=== PATIENT | female | born 1940 | race Caucasian/White ===

== ENCOUNTER 2018-08-07 10:51 | Outpatient (CLI) | payer MEDICARE ==
[2018-08-07 12:31] LABS: Basophils # (Auto) 0.1 K/mm3 (0.0-0.1); Basophils % (Auto) 0.9 % (0.0-1.8); Eosinophils # (Auto) 0.2 K/mm3 (0.0-0.4); Eosinophils % (Auto) 2.7 % (0.0-4.3); Hematocrit 38.9 % (30.3-42.9); Hemoglobin 13.7 gm/dl (10.1-14.3); Lymphocytes # (Auto) 1.3 K/mm3 (1.2-5.4); Lymphocytes % (Auto) 22.1 % (13.4-35.0); Mean Corpuscular HGB Conc 35 % (30-34); Mean Corpuscular Volume 91 fl (79-97); Monocytes # (Auto) 0.3 K/mm3 (0.0-0.8); Monocytes % (Auto) 4.4 % (0.0-7.3); Platelet Count 203 K/mm3 (140-440); Red Blood Count 4.26 M/mm3 (3.65-5.03); Red Cell Distribution Width 14.5 % (13.2-15.2)
[2018-08-07 12:48] LABS: Alanine Aminotransferase 15 units/L (7-56); Albumin 4.4 g/dL (3.9-5); BUN/Creatinine Ratio 17; Blood Urea Nitrogen 10 mg/dL (7-17); Calcium 9.5 mg/dL (8.4-10.2); Chol/HDL Ratio 3.29 %; HDL Cholesterol 58 mg/dL (40-59); Hemolysis Index 3; LDL Cholesterol,Direct 134 mg/dL (50-130)
== END 2018-08-07 10:52 | disposition home or self-care (01) ==
LOC: LAB 10:51
PROVIDERS: ATTEND Internal Medicine
DX: I10 Essential (primary) hypertension (principal); E78.2 Mixed hyperlipidemia; E66.09 Other obesity due to excess calories; K57.32 Diverticulitis of large intestine without perforation or abscess without bleeding; K21.9 Gastro-esophageal reflux disease without esophagitis; J45.909 Unspecified asthma, uncomplicated; Z90.49 Acquired absence of other specified parts of digestive tract; Z90.710 Acquired absence of both cervix and uterus
CPT/HCPCS: 36415; 80053; 80061; 82306; 82607; 85025

== ENCOUNTER 2019-01-08 10:16 | Outpatient (CLI) | payer MEDICARE ==
[2019-01-08 11:33] LABS: Chol/HDL Ratio 2.43 %
[2019-01-11 12:45] LABS: Vitamin D, 25-OH, D2 <4 ng/mL
== END 2019-01-08 10:17 | disposition home or self-care (01) ==
LOC: LAB 10:16
PROVIDERS: ATTEND Internal Medicine
DX: E78.2 Mixed hyperlipidemia (principal); M89.9 Disorder of bone, unspecified; K21.9 Gastro-esophageal reflux disease without esophagitis; I10 Essential (primary) hypertension; E78.5 Hyperlipidemia, unspecified
CPT/HCPCS: 36415; 80061; 82306

== ENCOUNTER 2019-05-24 09:48 | Outpatient (CLI) | payer MEDICARE ==
[2019-05-24 12:49] LABS: Basophils % (Auto) 0.4 % (0.0-1.8); Eosinophils # (Auto) 0.1 K/mm3 (0.0-0.4); Eosinophils % (Auto) 2.6 % (0.0-4.3); Hematocrit 37.5 % (30.3-42.9); Hemoglobin 13.2 gm/dl (10.1-14.3); Lymphocytes # (Auto) 1.4 K/mm3 (1.2-5.4); Lymphocytes % (Auto) 24.9 % (13.4-35.0); Mean Corpuscular HGB Conc 35 % (30-34); Mean Corpuscular Volume 91 fl (79-97); Monocytes # (Auto) 0.3 K/mm3 (0.0-0.8); Monocytes % (Auto) 4.9 % (0.0-7.3); Platelet Count 198 K/mm3 (140-440); Red Blood Count 4.12 M/mm3 (3.65-5.03); Red Cell Distribution Width 14.7 % (13.2-15.2)
[2019-05-24 13:05] LABS: Creatinine,Urine 48.2 mg/dL (0.1-20.0)
[2019-05-24 13:15] LABS: Alanine Aminotransferase 11 units/L (7-56); Albumin 4.5 g/dL (3.9-5); BUN/Creatinine Ratio 19; Blood Urea Nitrogen 15 mg/dL (7-17); Calcium 9.9 mg/dL (8.4-10.2); Chol/HDL Ratio 2.55 %; HDL Cholesterol 60 mg/dL (40-59); Hemolysis Index 1; LDL Cholesterol,Direct 88 mg/dL (50-130); Microalbumin/Creatinine Ratio 24.8 ug/mg
[2019-05-30 07:18] LABS: Vitamin D, 25-OH, D2 <4 ng/mL
== END 2019-05-24 09:49 | disposition home or self-care (01) ==
LOC: LAB 09:48
PROVIDERS: ATTEND Internal Medicine
DX: E11.65 Type 2 diabetes mellitus with hyperglycemia (principal); E03.9 Hypothyroidism, unspecified; E78.5 Hyperlipidemia, unspecified; Z13.21 Encounter for screening for nutritional disorder
CPT/HCPCS: 36415; 80053; 80061; 82043; 82306; 82607; 83036; 84443; 85025

== ENCOUNTER 2020-11-06 14:22 | Inpatient (IN) | payer MEDICARE ==
[2020-11-06] MEDS ORDERED: hydrALAZINE 20 MG/1 ML INJ IV PRN (16:19)
[2020-11-06] MEDS ORDERED: ONDANSETRON 4 MG ODT TAB PO PRN (16:19)
[2020-11-06] MEDS ORDERED: ACETAMINOPHEN 325 MG TAB PO PRN (16:19)
[2020-11-06] MEDS ORDERED: POLYETHYLENE GLYCOL 3350 17 GM POWDER PO PRN (16:19)
[2020-11-06] MEDS ORDERED: ALBUTEROL 2.5 MG/3 ML NEBU IH PRN (16:19)
[2020-11-06] MEDS: metroNIDAZOLE 500 MG TAB PO SCH (22:10)
[2020-11-06] MEDS: levoFLOXacin 500 MG TAB PO SCH (22:10)
[2020-11-06] MEDS: HEPARIN 5,000 UNIT/1 ML VIAL SUB-Q SCH (22:11)
[2020-11-07 05:25] LABS: Basophils % (Auto) 0.5 % (0.0-1.8); Eosinophils % (Auto) 0.9 % (0.0-4.3); Hemoglobin 9.2 gm/dl (10.1-14.3); Lymphocytes # (Auto) 1.3 K/mm3 (1.2-5.4); Lymphocytes % (Auto) 22.5 % (13.4-35.0); Mean Corpuscular HGB Conc 34 % (30-34); Mean Corpuscular Volume 89 fl (79-97); Monocytes # (Auto) 0.4 K/mm3 (0.0-0.8); Platelet Count 282 K/mm3 (140-440); Red Blood Count 3.04 M/mm3 (3.65-5.03); Red Cell Distribution Width 14.5 % (13.2-15.2)
[2020-11-07 05:48] LABS: Alanine Aminotransferase 13 units/L (7-56); Albumin 3.1 g/dL (3.9-5); BUN/Creatinine Ratio 14; Blood Urea Nitrogen 13 mg/dL (7-17); Hemolysis Index 5
[2020-11-07] MEDS: metroNIDAZOLE 500 MG TAB PO SCH ×3 (06:34→22:08)
[2020-11-07] MEDS ORDERED: PANTOPRAZOLE 40 MG TAB PO SCH (07:30)
--- NOTE | 2020-11-07 08:10 | History and Physical Report ---
History of Present Illness Date: 11/07/20 Date of admission: 11/06/20 21:04 Chief Complaint: Debility History of present illness: 80-year-old female who presented to the outside hospital on 10/19/2020 with complaints of generalized abdominal pain for the past 2 weeks accompanied with fever and chills for the past week. She is [place] speaking only. Patient was worked up and found to have a mass on her liver and was admitted for further treatment. Denied any decreased weight but did have decreased appetite over the same. Along with increased urinary frequency without dysuria. Initial work-up showed elevated WBC at 21.4, patient was afebrile and tachycardic. CT abdomen pelvis showed extensive colonic diverticulosis, hiatal hernia, hepatic mass on the right lobe, mottled hepatic hypodensity in both lobes and further advanced imaging was recommended. Antibiotics were started for sepsis. She developed a fever on 10/22 of 101.6 and infectious disease was consulted. Blood cultures were negative, she was found to have a UTI and also developed pneumonia during her stay, both of which were treated with antibiotics. A biopsy was taken of her liver and a percutaneous abdominal drain was placed by interventional radiology on or around 10/29 (exact date not clear from notes available). Interventional radiology requested a follow-up with CT within 1 week of discharge for possibly removing the drain. We will try to coordinate with them to see if we can perform the imaging here versus sending her out. After the patient was medically stabilized they were transferred for further rehabilitation. All available medical records have been reviewed. Plan of care was discussed with patient. Language line was offered and available with the patient during examination, patient declined and stated we could speak in [place]. I reminded her to please let me know she did not under stand anything and we would utilize the language line to ensure she had full understanding for her care. Patient continues on oral antibiotics. Patient also noted to have acute on chronic kidney disease (CKD 3) per the medical record however she denies this. She does live alone with her who is recently had a stroke and is primary caregiver. On examination her left upper extremity is warm, red and tender to palpation near her previous IV site, concern for either infiltration versus DVT versus thrombophlebitis. Doppler ordered to evaluate further Past History Past Medical History: GERD, hypertension, hyperlipidemia, other (CKD 3) Past Surgical History: cholecystectomy, hysterectomy, total knee replacement (Left), Other (Right ankle surgery) Social history: , lives with family. denies: smoking, alcohol abuse Family history: CAD, cancer Medications and Allergies Allergies Allergy/AdvReac Type Severity Reaction Status Date / Time No Known Allergies Allergy Verified 04/13/14 19:30 Active Meds: Active Medications Acetaminophen (Acetaminophen 325 Mg Tab) 650 mg PO Q6H PRN PRN Reason: Non Cardiac Pain or Temp>100.5 Albuterol (Albuterol 2.5 Mg/3 Ml Nebu) 2.5 mg IH Q4HRT PRN PRN Reason: Shortness Of Breath Amlodipine Besylate (Amlodipine 10 Mg Tab) 10 mg PO QDAY ENOCH Atorvastatin Calcium (Atorvastatin 40 Mg Tab) 40 mg PO QHS [facility] Last Admin: 11/06/20 21:08 Dose: Not Given Documented by: Bisacodyl (Bisacodyl 10 Mg Rect Supp) 10 mg FL QDAY PRN PRN Reason: Constipation Heparin Sodium (Porcine) (Heparin 5,000 Unit/1 Ml Vial) 5,000 unit SUB-Q Q12HR [facility] Last Admin: 11/06/20 22:11 Dose: 5,000 unit Documented by: Hydralazine HCl (Hydralazine 20 Mg/1 Ml Inj) 10 mg IV Q4HR PRN PRN Reason: Hypertension Levofloxacin (Levofloxacin 500 Mg Tab) 500 mg PO Q48H [facility]; Protocol Stop: 11/14/20 20:59 Last Admin: 11/06/20 22:10 Dose: 500 mg Documented by: Losartan Potassium (Losartan 50 Mg Tab) 50 mg PO QDAY [facility] Metronidazole (Metronidazole 500 Mg Tab) 500 mg PO Q8HR [facility]; Protocol Stop: 11/14/20 21:59 Last Admin: 11/07/20 06:34 Dose: 500 mg Documented by: Ondansetron HCl (Ondansetron 4 Mg Odt Tab) 4 mg PO Q8H PRN PRN Reason: Nausea And Vomiting Pantoprazole Sodium (Pantoprazole 40 Mg Tab) 40 mg PO BIDAC [facility] Polyethylene Glycol (Polyethylene Glycol 3350 17 Gm Powder) 17 gm PO QDAY PRN PRN Reason: Constipation Review of Systems All systems: negative (ROS negative for 10 systems except as noted below with pertinent positives and negatives.) Constitutional: poor appetite, no fever, no chills Ears, nose, mouth and throat: no decreased hearing, no voice changes Cardiovascular: no chest pain, no palpitations, no edema Respiratory: no cough with sputum, no shortness of breath Gastrointestinal: abdominal pain, no nausea, no vomiting, no diarrhea, no constipation Musculoskeletal: shooting arm pain, limitation of motion Integumentary: wounds (Percutaneous abdominal drain for liver abscess), no rash, no pruritis Neurological: weakness, no numbness Psychiatric: no memory loss, no insomnia Exam - Exam Narrative exam: MUSCULOSKELETAL SPECIALTY EXAM CONSTITUTIONAL: Well developed, well nourished, appropriately groomed, slightly obese LYMPHATIC: No appreciable abnormalities palpable in neck EENT: Oropharynx clear. Hearing intact to soft voice RESPIRATORY: Clear to auscultation bilaterally, no increased work of breathing CARDIOVASCULAR: Regular Rate/ Rhythm, no swelling, edema or tenderness in BUE or BLE. Pulses palpable in all extremities. All extremities warm. GI: + bowel sounds, soft, NTTP, nondistended. Percutaneous drain in right abdomen with expected drainage INTEGUMENTARY: Left upper extremity warm to touch, red, otherwise normal, no lesion, rash, masses or bruising noted in extremities. MUSCULOSKELETAL: Left upper extremity with decreased range of motion and tenderness to palpation, otherwise BUE and BLE normal without defect, crepitus, subluxation, effusion, arthritic changes or TTP. RUE 4+/5, good ROM, with normal tone. LUE with decreased range of motion and strength due to pain BLE 4/5 good ROM, with normal tone NEURO: CN 2-12 grossly intact. Sensation intact in all extremities. Reflexes 2+ bilaterally at biceps, brachioradialis and patella. No clonus at ankles. Coordination intact in BUE. No tremor noted in 4 extremities. POSTURE and GAIT: Sitting posture good. Balance and gait deferred until seen with therapy. PSYCH: Alert, oriented x3, affect appears normal. Insight appears intact. - Constitutional Vitals: Vital Signs - 12hr 11/06/20 11/06/20 11/06/20 21:25 22:00 23:00 Temperature 98.9 F 98.9 F Pulse Rate 97 H Respiratory 16 18 Rate Respiratory 18 Rate [Abdomen] Blood Pressure 148/75 [Left] O2 Sat by Pulse 92 Oximetry 11/07/20 05:04 Temperature 98.3 F Pulse Rate 100 H Respiratory 16 Rate Respiratory Rate [Abdomen] Blood Pressure 150/79 [Left] O2 Sat by Pulse 95 Oximetry - Labs CBC & Chem 7: 11/07/20 05:00 11/07/20 05:00 Labs: Laboratory Results - last 72 hr 11/07/20 11/07/20 05:00 05:00 WBC 5.9 RBC 3.04 L Hgb 9.2 L Hct 27.0 L MCV 89 MCH 30 MCHC 34 RDW 14.5 Plt Count 282 Lymph % (Auto) 22.5 Tucker % (Auto) 7.0 Eos % (Auto) 0.9 Baso % (Auto) 0.5 Lymph # (Auto) 1.3 Tucker # (Auto) 0.4 Eos # (Auto) 0.0 Baso # (Auto) 0.0 Seg Neutrophils % 69.1 Seg Neutrophils # 4.0 Sodium 139 Potassium 3.9 Chloride 98.9 Carbon Dioxide 29 Anion Gap 15 BUN 13 Creatinine 0.9 Estimated GFR > 60 BUN/Creatinine Ratio 14 Glucose 99 Calcium 9.0 Total Bilirubin 0.30 AST 16 ALT 13 Alkaline Phosphatase 91 Total Protein 7.2 Albumin 3.1 L Albumin/Globulin Ratio 0.8 Assessment and Plan Assessment and plan: Patient was assessed and evaluated for Acute Inpatient Rehab Unit. Due to the patients above-mentioned medical complexity, along with decreased functional mobility and self care, this patient continues to require and be appropriate for a comprehensive, multidisciplinary [id number] rehabilitation program. These needs cannot be met in an outpatient or other less intensive setting. The patient would continue to benefit from skilled therapy intervention for at least 3 hours per day, five days a week, with techniques specific to the needs of the patient to improve function, activities of daily living, and reintegration into the community. The patient continues to require: -- OT to improve ROM, self-care, and learn use of adaptive equipment -- PT to improve strength and balance, functional transfers, and ambulation with energy conservation techniques to improve functional mobility -- 24 hour RN to ensure and prevent skin breakdown, promote progressive independence while ensuring safety, ensure education regarding medications, and incorporation of the rehabilitation at the bedside -- 24 hour Freight Coordinator to coordinate this interdisciplinary program, and to manage/prevent complications as a result of the patients medical comorbidities. -Plan of care by day 4 -Weekly team conferences With such a program, there is a reasonable certainty that the goals individualized for this patient can be achieved within the specified length of stay. Debility secondary to hospitalization with sepsis and liver abscess: Continue to monitor patient for resolution of infection. Antibiotics are continuing for approximately 1 week. Infectious disease available if needed. Percutaneous abdominal drain remains in place with expected drainage, patient will need to follow-up with abdominal CT and possibly have removal of drain in 1 week. We will contact outside hospital and see if our facility can perform the CT versus sending her back to the outside hospital. Continue to monitor for any worsening signs or symptoms of infection or significant changes in drainage from liver. Patient also had UTI and suspected pneumonia in outside hospital, will need to monitor for return of either of these issues. Pain, swelling and redness of left upper extremity: Located at prior IV site which patient states was left in for a prolonged period of time. Concern for possible infiltration versus thrombophlebitis versus DVT. Have ordered Doppler to evaluate further and will start appropriate therapy after words. Currently providing ice for therapeutic relief. Hypertension: Goal less than 140/90. Avoid hypotension. Continue medications and monitor blood pressure on a regular basis and adjust medications as needed for normotension. On exam patient is slightly elevated with blood pressure this morning. Will monitor over the next day or 2 and adjust as needed. She is currently on maximal dose of amlodipine, but we do have room to increase losartan. Anemia: Normocytic normochromic currently. We will continue to monitor and transfuse for hemoglobin less than 7. Work-up to determine if patient needs replacement of nutrients. Moderate protein malnutrition: Start supplements, dietitian consult. Monitor oral intake and just supplements as needed. CKD?: Patient had acute on chronic kidney disease at outside hospital. Patient states that she does not have any diagnosis that she knows of of CKD. We will continue to monitor renal function and adjust medications as needed if we see further issues. Currently patient's renal function appears to be normal. GERD: Continue Protonix. ADL dysfunction: OT will work on improving ability to perform ADLs (including assistive devices) to increase independence and decrease caregiver burden and improve functional transfers and mobility training. Difficulty walking: PT will work on gait training and proper use of assistive devices and advance as appropriate to use of stairs and outside ambulation on uneven surfaces. Unsteadiness on feet: PT will work on improving static and dynamic sitting and standing balance as well as proper use of assistive devices to decrease risk of falls. Abnormality of gait: PT will work to improve safety and efficiency of gait through neuromotor training and gait training along with instruction on proper use of assistive devices. Muscle weakness: PT & OT will work on strengthening exercises to improve functional strength including mixture of closed and open kinetic chain exercises. Debility: PT & OT will work on improving overall functional status to improve participation with ADLs, mobility and social involvement. Fatigue: PT & OT will work on improving endurance through aerobic exercises and therapeutic activity while monitoring patients tolerance for activity and vital signs as needed. DVT ppx: Heparin twice daily Pain: Continue physical modalities in therapy and pain medications as needed to achieve functional pain control. Sleep: Monitor and address as needed. Bowel: Monitor and address as needed. Appetite: Monitor and address as needed. Discharge planning: Pending therapy progress and care plan meeting. Will continue discussion with therapy team, SW, patient and family. Restrictions/ Precautions: Falls, percutaneous abdominal drain WB status: FWB Functional Hx: ADLs: Independent Cognition: Independent Mobility: No AD Barriers to Discharge: Decreased mobility and ability to perform self care, balance deficits, weakness Estimated Length of Stay: 1014 days Discharge Destination: Home with family POST ADMISSION PHYSICIAN EVALUATION I have examined the patient and find that functional status, medical condition and appropriateness for IRF admission are essentially unchanged from those described in the preadmission screening. Will monitor for worsening sepsis, hepatic abscess, increased drainage from abscess site, DVT/PE (suspected DVT in left upper extremity being evaluated currently), bowel and bladder complications and complications due to hypertension, GERD, and electrolyte abnormalities. Will attempt to avoid occurrence of these issues or treat them if they present themselves.
[2020-11-07] MEDS: amLODIPine 10 MG TAB PO SCH (09:42)
[2020-11-07] MEDS: LOSARTAN 50 MG TAB PO SCH (09:43)
[2020-11-07] MEDS: HEPARIN 5,000 UNIT/1 ML VIAL SUB-Q SCH ×2 (10:10→22:09)
--- NOTE | 2020-11-07 12:40 | Vascular Lab Report ---
DUPLEX DOPPLER UPPER EXTREMITY VENOUS, LEFT INDICATION / CLINICAL INFORMATION: LUE TTP, warm, suspect DVT vs thrombophlebitis. TECHNIQUE: Duplex doppler imaging was performed through the veins of the left upper extremity using venous compr ession and other maneuvers. COMPARISON: None available. FINDINGS: LEFT INTERNAL JUGULAR VEIN: Negative. LEFT SUBCLAVIAN VEIN: Negative. LEFT AXILLARY VEIN: Negative. LEFT BRACHIAL VEIN: Negative. LEFT FOREARM VEINS: Negative. LEFT BASILIC VEIN (SUPERFICIAL): Negative. ADDITIONAL FINDINGS: Mild superficial soft tissue swelling and edema of the left upper extremity IMPRESSION: 1. No sonographic evidence for DVT or superficial thrombophlebitis. Signer Name: Gurvinder Jose MD Signed: 11/07/2020 12:36 PM Workstation Name: [id number]
[2020-11-08] MEDS: amLODIPine 10 MG TAB PO SCH (09:10)
[2020-11-08] MEDS: PANTOPRAZOLE 40 MG TAB PO SCH (09:10)
[2020-11-08] MEDS: LOSARTAN 50 MG TAB PO SCH (09:10)
[2020-11-08] MEDS: HEPARIN 5,000 UNIT/1 ML VIAL SUB-Q SCH ×2 (09:17→21:23)
[2020-11-08] MEDS: metroNIDAZOLE 500 MG TAB PO SCH ×2 (17:07→21:24)
[2020-11-08] MEDS: levoFLOXacin 500 MG TAB PO SCH (21:23)
[2020-11-08] MEDS: traMADol 50 MG TAB PO PRN (22:57)
[2020-11-09] MEDS: metroNIDAZOLE 500 MG TAB PO SCH ×4 (05:28→21:21)
[2020-11-09 07:11] LABS: Hematocrit 26.6 % (30.3-42.9); Hemoglobin 9.1 gm/dl (10.1-14.3); Mean Corpuscular HGB Conc 34 % (30-34); Mean Corpuscular Volume 90 fl (79-97); Platelet Count 257 K/mm3 (140-440); Red Blood Count 2.96 M/mm3 (3.65-5.03); Red Cell Distribution Width 15.3 % (13.2-15.2)
[2020-11-09 07:36] LABS: BUN/Creatinine Ratio 16; Blood Urea Nitrogen 14 mg/dL (7-17); Calcium 9.2 mg/dL (8.4-10.2); Hemolysis Index 0; Iron 56 ug/dL (37-170); Prealbumin 0.168 g/L (0.200-0.400); Total Iron Binding Capacity 150 mcg/dL (250-450)
[2020-11-09] MEDS: PANTOPRAZOLE 40 MG TAB PO SCH (07:48)
[2020-11-09] MEDS: LOSARTAN 50 MG TAB PO SCH (07:48)
[2020-11-09] MEDS: amLODIPine 10 MG TAB PO SCH (07:48)
--- NOTE | 2020-11-09 09:45 | Progress Note ---
Subjective Date of service: 11/09/20 Principal diagnosis: Debility Interval history: 80-year-old female who presented to the outside hospital on 10/19/2020 with complaints of generalized abdominal pain for the past 2 weeks accompanied with fever and chills for the past week. She is [place] speaking only. Patient was worked up and found to have a mass on her liver and was admitted for further treatment. Denied any decreased weight but did have decreased appetite over the same. Along with increased urinary frequency without dysuria. Initial work-up showed elevated WBC at 21.4, patient was afebrile and tachycardic. CT abdomen pelvis showed extensive colonic diverticulosis, hiatal hernia, hepatic mass on the right lobe, mottled hepatic hypodensity in both lobes and further advanced imaging was recommended. Antibiotics were started for sepsis. She developed a fever on 10/22 of 101.6 and infectious disease was consulted. Blood cultures were negative, she was found to have a UTI and also developed pneumonia during her stay, both of which were treated with antibiotics. A biopsy was taken of her liver and a percutaneous abdominal drain was placed by interventional radiology on 10/29 . Interventional radiology requested a follow-up with CT within 1 week of discharge for possibly removing the drain. We will try to coordinate with them to see if we can perform the imaging here versus sending her out. After the patient was medically stabilized they were transferred for further rehabilitation. All available medical records have been reviewed. Plan of care was discussed with patient. Language line was offered and available with the patient during examination, patient declined and stated we could speak in [place]ali. I reminded her to please let me know she did not under stand anything and we would utilize the language line to ensure she had full understanding for her care. Patient continues on oral antibiotics. Patient also noted to have acute on chronic kidney disease (CKD 3) per the medical record however she denies this. She does live alone with her who is recently had a stroke and is primary caregiver. On examination her left upper extremity is warm, red and tender to palpation near her previous IV site, concern for either infiltration versus DVT versus thrombophlebitis. Doppler ordered to evaluate further Interval History: Patient is participating in therapy and making reasonable progress. Taking rest breaks as needed. +BM. Denies palpitations, dyspnea, cough, N/V, or joint pain. Debility: Continue therapy and monitor patient for improvement in ability to move around, maintain independence and decrease caregiver burden. Hepatic abscess: Drain in place with small amount of output. Patient is supposed to follow-up with interventional radiology within a week in order to have repeat CT as well as possibly for removal. Discussed drain removal and repeat CT with both our in-house radiologist as well as radiologist at outside hospital. All are in agreement that we can perform the repeat imaging here and remove the drain if abscess is reduced enough and there is no longer a fluid collection requiring drainage. From reviewing the available notes it appears that the drain might be ready to be removed on Monday. We will work to get this scheduled Left upper extremity pain and swelling: Imaging and report reviewed. No signs of DVT thankfully in the left upper extremity. Swelling has decreased somewhat today, continue utilizing modalities and pain medications as needed. Movement slightly better today Hypertension: Values have been stable and within normal limits so far. Continue to monitor blood pressure on a regular basis and adjust for normotension. Goal less than 140/90. Avoid hypotension. Anemia: Consistent with anemia of chronic disease. Folate in normal range but on the lower side. Moderate protein malnutrition: Albumin was low on admission, prealbumin also low at 0.168. Patient on supplements. CKD: Patient's renal function has been stable and within normal limits since admission. Estimated GFR greater than 60 GERD: Continue medications adjust as needed, monitor for symptoms. Insomnia: Start trazodone and monitor All records, vitals, labs and medications were reviewed. No other issues per patient, nursing or therapy. Objective - Exam Narrative Exam: MUSCULOSKELETAL SPECIALTY EXAM CONSTITUTIONAL: Well developed, well nourished, appropriately groomed, slightly obese EENT: Hearing intact to soft voice RESPIRATORY: Clear to auscultation bilaterally, no increased work of breathing CARDIOVASCULAR: Regular Rate/ Rhythm, no swelling, edema or tenderness in BUE or BLE. All extremities warm. GI: + bowel sounds, soft, NTTP, nondistended. Percutaneous drain in right abdomen with expected drainage INTEGUMENTARY: Left upper extremity warm to touch, red, otherwise normal, no lesion, rash, masses or bruising noted in extremities. MUSCULOSKELETAL: Left upper extremity with decreased range of motion and tenderness to palpation, otherwise BUE and BLE normal without defect, crepitus, subluxation, effusion, arthritic changes or TTP. RUE 4+/5, good ROM, with normal tone. LUE with decreased range of motion and strength due to pain BLE 4/5 good ROM, with normal tone NEURO: CN 2-12 grossly intact. Sensation intact in all extremities. No tremor noted in 4 extremities. POSTURE and GAIT: Sitting posture good. Balance and gait deferred until seen with therapy. PSYCH: Alert, oriented x3, affect appears normal. Insight appears intact. - Constitutional Vitals: Vital Signs - 12hr 11/08/20 11/08/20 11/08/20 22:00 22:57 23:00 Temperature Pulse Rate Respiratory 17 17 Rate Respiratory 17 Rate [Left Hand ] Blood Pressure O2 Sat by Pulse Oximetry 11/08/20 11/09/20 11/09/20 23:57 07:39 07:48 Temperature 98.9 F Pulse Rate 93 H 88 Respiratory 17 16 Rate Respiratory Rate [Left Hand ] Blood Pressure 118/61 130/62 O2 Sat by Pulse 93 Oximetry - Allied health notes Allied health notes reviewed: nursing, PT, OT FIMS assessment as documented by PT/OT/ST: Grooming Patient cleans teeth/dentures: Yes Patient omer/brushes hair: Yes Patient washes, rinses and Yes dries face: Patient washes, rinses and Yes dries hands: Patient applies make-up: No Patient performs (no make-up/ / (100%) shaving): Grooming FIM Score 5. Supervision ([place] applies toothpaste or opens containers.) Toileting Toileting Device Commode over Toilet Toileting FIM Score 2. Maximal Assistance (Patient = 25% or more) Social interaction/Memory/Problem solving Social Interaction FIM Score 6. Mod. [place] (Mostly appropriate. May need meds. No supv.) Memory FIM Score 5. Supervision (Needs cueing <10%, stressful/ unfamiliar situations.) Transfers Mode of Locomotion: Wheelchair Bed/Chair/Wheelchair Transfers 4. Minimal Assistance (Patient = 75% or more. FIM Score Needs touching.) Patient transferred to: Shower Shower Transfers FIM Score 4. Minimal Assistance (Patient = 75% or more. Needs touching.) Locomotion- walk/wheelchair Ambulation Distance 126 Eating Eating FIM Score 5. Supervision/Set-Up (Needs help w/ containers, cutting meat, etc.) Dressing-Upper body Patient retrieves clothing Yes items: Patient applies/removes UE No: n/a prosthesis or orthosis: Upper Body Dressing FIM Score 2. Maximal Assistance (Patient = 25% or more) Dressing-lower body Patient retrieves clothing Yes items: Patient applies/removes LE No: n/a prosthesis or orthosis: Lower Body Dressing FIM Score 2. Maximal Assistance (Patient = 25% or more) - Labs CBC & Chem 7: 11/09/20 06:21 11/09/20 06:21 Labs: Laboratory Results - last 72 hr 11/07/20 11/07/20 11/09/20 05:00 05:00 06:21 WBC 5.9 5.4 RBC 3.04 L 2.96 L Hgb 9.2 L 9.1 L Hct 27.0 L 26.6 L MCV 89 90 MCH 30 31 MCHC 34 34 RDW 14.5 15.3 H Plt Count 282 257 Lymph % (Auto) 22.5 [place] % (Auto) 7.0 Eos % (Auto) 0.9 Baso % (Auto) 0.5 Lymph # (Auto) 1.3 [place] # (Auto) 0.4 Eos # (Auto) 0.0 Baso # (Auto) 0.0 Seg Neutrophils % 69.1 Seg Neutrophils # 4.0 Sodium 139 Potassium 3.9 Chloride 98.9 Carbon Dioxide 29 Anion Gap 15 BUN 13 Creatinine 0.9 Estimated GFR > 60 BUN/Creatinine Ratio 14 Glucose 99 Calcium 9.0 Iron TIBC Ferritin Total Bilirubin 0.30 AST 16 ALT 13 Alkaline Phosphatase 91 Total Protein 7.2 Albumin 3.1 L Albumin/Globulin Ratio 0.8 Prealbumin Folate 11/09/20 11/09/20 11/09/20 06:21 06:21 06:21 WBC RBC Hgb Hct MCV MCH MCHC RDW Plt Count Lymph % (Auto) [place] % (Auto) Eos % (Auto) Baso % (Auto) Lymph # (Auto) [place] # (Auto) Eos # (Auto) Baso # (Auto) Seg Neutrophils % Seg Neutrophils # Sodium 139 Potassium 3.9 Chloride 99.6 Carbon Dioxide 28 Anion Gap 15 BUN 14 Creatinine 0.9 Estimated GFR > 60 BUN/Creatinine Ratio 16 Glucose 87 Calcium 9.2 Iron 56 TIBC 150 L Ferritin 1207.0 H Total Bilirubin AST ALT Alkaline Phosphatase Total Protein Albumin Albumin/Globulin Ratio Prealbumin 0.168 L Folate 10.52 Assessment and Plan Debility secondary to hospitalization with sepsis and liver abscess: Continue to monitor patient for resolution of infection. Antibiotics are continuing for approximately 1 week. Infectious disease available if needed. Percutaneous abdominal drain remains in place with expected drainage, patient will need to follow-up with abdominal CT and possibly have removal of drain in 1 week. We will contact outside hospital and see if our facility can perform the CT versus sending her back to the outside hospital. Continue to monitor for any worsening signs or symptoms of infection or significant changes in drainage from liver. Patient also had UTI and suspected pneumonia in outside hospital, will need to monitor for return of either of these issues. Pain, swelling and redness of left upper extremity: Located at prior IV site w [facility] patient states was left in for a prolonged period of time. Concern for possible infiltration versus thrombophlebitis versus DVT. Doppler negative for thrombophlebitis or DVT. Currently providing ice for therapeutic relief along with pain medications. Hypertension: Goal less than 140/90. Avoid hypotension. Continue medications and monitor blood pressure on a regular basis and adjust medications as needed for normotension. On exam patient is slightly elevated with blood pressure this morning. Will monitor over the next day or 2 and adjust as needed. She is currently on maximal dose of amlodipine, but we do have room to increase losartan. Anemia: Normocytic normochromic currently. We will continue to monitor and transfuse for hemoglobin less than 7. Work-up to determine if patient needs replacement of nutrients. Moderate protein malnutrition: Start supplements, dietitian consult. Monitor oral intake and just supplements as needed. CKD?: Patient had acute on chronic kidney disease at outside hospital. Patient states that she does not have any diagnosis that she knows of of CKD. We will continue to monitor renal function and adjust medications as needed if we see further issues. Currently patient's renal function appears to be normal. GERD: Continue Protonix. Insomnia: Start trazodone monitor for improvement. ADL dysfunction: OT will work on improving ability to perform ADLs (including assistive devices) to increase independence and decrease caregiver burden and improve functional transfers and mobility training. Difficulty walking: PT will work on gait training and proper use of assistive devices and advance as appropriate to use of stairs and outside ambulation on uneven surfaces. Unsteadiness on feet: PT will work on improving static and dynamic sitting and standing balance as well as proper use of assistive devices to decrease risk of falls. Abnormality of gait: PT will work to improve safety and efficiency of gait through neuromotor training and gait training along with instruction on proper use of assistive devices. Muscle weakness: PT & OT will work on strengthening exercises to improve functional strength including mixture of closed and open kinetic chain exercises. Debility: PT & OT will work on improving overall functional status to improve participation with ADLs, mobility and social involvement. Fatigue: PT & OT will work on improving endurance through aerobic exercises and therapeutic activity while monitoring patients tolerance for activity and vital signs as needed. DVT ppx: Heparin twice daily Pain: Continue physical modalities in therapy and pain medications as needed to achieve functional pain control. Sleep: Monitor and address as needed. Bowel: Monitor and address as needed. Appetite: Monitor and address as needed. Discharge planning: Pending therapy progress and care plan meeting. Will reymundo peralta discussion with therapy team, SW, patient and family. Restrictions/ Precautions: Falls, percutaneous abdominal drain WB status: FWB Functional Hx: ADLs: Independent Cognition: Independent Mobility: No AD Barriers to Discharge: Decreased mobility and ability to perform self care, balance deficits, weakness Estimated Length of Stay: 1014 days Discharge Destination: Home with family
[2020-11-09] MEDS: HEPARIN 5,000 UNIT/1 ML VIAL SUB-Q SCH ×2 (11:51→21:21)
--- NOTE | 2020-11-09 16:31 | IRU Plan of Care ---
Interdisciplinary Plan of Care - IP IRU INTERDISCIPLINARY PLAN: [facility] Inpatient Rehab Unit Plan of Care IRU Interdisciplinary Care Plan Start: 11/06/20 21:25 Freq: Admission then PRN Status: Active Protocol: Document 11/09/20 15:28 TH (Rec: 11/09/20 15:41 TH [id number]) Interdisciplinary Problem List Interdisciplinary Problem List Interdisciplinary Problem List Impaired Bathing/Grooming, Query Text:Answers will Trigger Problems Impaired Dressing,Impaired and Outcomes on Worklist. Mobility,Impaired Transfers, Impaired Bladder/Bowel Management,Impaired Toileting, Pain Management,Knowledge Deficits,Impaired Home Management,Impaired Safety, Impaired Cardiovascular System IRU Interdisciplinary Care Plan Therapy Services Therapy Services Will Include: Physical Therapy,Occupational Query Text:Patient will be seen for a Therapy minimum of 3 hours of daily therapy 5 out of 7 days a week. Therapy intensity may be adjusted within a 7 consecutive day period to effectively serve the individual needs of the patient. Treatment Frequency/Intensity/Duration Treatment Frequency 5days/wk Treatment Intensity 3 hours/day Treatment Duration 7-10 days Problem Area: Eating/Swallowing Eating/Swallowing Outcomes Eating/Swallowing Interventions Problem Area: Bathing/Grooming Bathing/Grooming Outcomes Improve [place] w/ Grooming,Improve [place] w/ Bathing Bathing/Grooming Interventions ADL Training,Use of Assistive Devices,Therapeutic Exercise, Therapeutic Activity, Neuromuscular Re-Education, Balance Work,Activity Tolerance Work,Patient/ Caregiver Education Problem Area: Dressing Dressing Outcomes Improve [place] w/ UB Dressing,Improve [place] w/ LB Dressing Dressing Interventions ADL Training,Use of Assistive Devices,Neuromuscular Re- Education,Therapeutic Exercise ,Balance Work,Modalities, Patient/Caregiver Education Problem Area: Mobility Mobility Outcomes Improve [place] w/ Ambulation,Improve [place] w/ Stairs/Curb, Improve [place] w/ Wheelchair Mobility Interventions Therapeutic Exercise,Activity Tolerance Work,Use of Assistive Devices,Patient/ Caregiver Education,Gait Training,W/C Mobility Work Problem Area: Transfers Transfers Outcomes Improve [place] w/ Bed Transfers,Improve [place] w/ Toilet Transfers,Improve [place] w/ Car Transfers Transfers Interventions Transfer Training,Therapeutic Exercise,Activity Tolerance Work,Use of Assistive Devices, Patient/Caregiver Education Problem Area: Bowel/Bladder Managment Bowel/Bladder Outcomes Continent of Bladder,Continent of Bowel Bowel/Bladder Interventions Patient/Caregiver Education Problem Area: Toileting Toileting Outcomes Improve [place] w/ Toileting Toileting Interventions ADL Training,Balance Work,Use of Assistive Devices,Patient/ Caregiver Education Problem Area: Nutrition Nutrition Outcomes Nutrition Interventions Problem Area: Comprehension Comprehension Outcomes Comprehension Interventions Problem Area: Expression Expression Outcomes Expression Interventions Problem Area: Problem Solving Problem Solving Outcomes Problem Solving Interventions Problem Area: Memory Memory Outcomes Memory Interventions Problem Area: Pain Management Pain Management Outcomes Pain Management Interventions Problem Area: Knowledge Deficits Knowledge Deficits Outcomes Knowledge Deficits Interventions Problem Area: Skin/Tissue Integrity Skin/Tissue Integrity Outcomes Skin/Tissue Integrity Interventions Problem Area: Social Interaction Social Interaction Outcomes Social Interaction Interventions Problem Area: Adjustment to Disability Adjustment to Disability Outcomes Adjustment to Disability Interventions Problem Area: Discharge Concerns Discharge Concerns Outcomes Discharge w/ Necessary Equipment,Have Home Health/ Outpatient Services Discharge Concerns Interventions Discharge Planning,Equipment Assessment, Acquisition and Placement,Family/Caregiver Training Problem Area: Community Reintegration Community Reintegration Outcomes Community Reintegration Interventions Problem Area: Home Management Home Management Outcomes Improve [place] w/ Home Management Home Management Interventions Meal Preparation,Clothing Care ,Activity Tolerance Work, Patient/Caregiver Education Problem Area: Safety Safety Outcomes Demonstrate Good Safety w/ Transfers/Mobility Safety Interventions Identify Fall Risk,[place] Pt. to Environment,Reduce Environmental Hazards Problem Area: Medication Education Medication Education Outcomes Medication Education Interventions Problem Area: Diabetes Education Diabetes Education Outcomes Diabetes Education Interventions Problem Area: Oxygenation Oxygenation Outcomes Oxygenation Interventions Problem Area: Cardiovascular Cardiovascular Outcomes Maintain or Improve Cardiovascular Status Cardiovascular Interventions Assess Vital Signs at least Every 4 hours Physician Only Medical Prognosis and Rehabilitation Potential (Completed by Physician) Good medical prognosis, good rehab potential This plan of care has been developed based on the findings from the pre- admission assessment, post admission physician evaluation, information gathered from the assessments from all therapy disciplines and other pertinent clinicians. The plan of care has been reviewed and discussed in collaboration with the interdisciplinary team. The plan of care will be reviewed and updated at least weekly.
[2020-11-09] MEDS: traMADol 50 MG TAB PO PRN (21:22)
[2020-11-10] MEDS: metroNIDAZOLE 500 MG TAB PO SCH ×3 (05:47→22:02)
--- NOTE | 2020-11-10 07:55 | Progress Note ---
Subjective Date of service: 11/10/20 Principal diagnosis: Debility Interval history: 80-year-old female who presented to the outside hospital on 10/19/2020 with complaints of generalized abdominal pain for the past 2 weeks accompanied with fever and chills for the past week. She is Sami speaking only. Patient was worked up and found to have a mass on her liver and was admitted for further treatment. Denied any decreased weight but did have decreased appetite over the same. Along with increased urinary frequency without dysuria. Initial work-up showed elevated WBC at 21.4, patient was afebrile and tachycardic. CT abdomen pelvis showed extensive colonic diverticulosis, hiatal hernia, hepatic mass on the right lobe, mottled hepatic hypodensity in both lobes and further advanced imaging was recommended. Antibiotics were started for sepsis. She developed a fever on 10/22 of 101.6 and infectious disease was consulted. Blood cultures were negative, she was found to have a UTI and also developed pneumonia during her stay, both of which were treated with antibiotics. A biopsy was taken of her liver and a percutaneous abdominal drain was placed by interventional radiology on 10/29 . Interventional radiology requested a follow-up with CT within 1 week of discharge for possibly removing the drain. We will try to coordinate with them to see if we can perform the imaging here versus sending her out. After the patient was medically stabilized they were transferred for further rehabilitation. All available medical records have been reviewed. Plan of care was discussed with patient. Language line was offered and available with the patient during examination, patient declined and stated we could speak in Swedish. I reminded her to please let me know she did not under stand anything and we would utilize the language line to ensure she had full understanding for her care. Patient continues on oral antibiotics. Patient also noted to have acute on chronic kidney disease (CKD 3) per the medical record however she denies this. She does live alone with her who is recently had a stroke and is primary caregiver. On examination her left upper extremity is warm, red and tender to palpation near her previous IV site, concern for either infiltration versus DVT versus thrombophlebitis. Doppler ordered to evaluate further Interval History: Patient is participating in therapy and making reasonable progress. Taking rest breaks as needed. +BM. Denies palpitations, dyspnea, cough, N/V, or joint pain. Continues to have left upper extremity pain and swelling but this has decreased. Debility: Continue therapy and monitor patient for improvement in ability to move around, maintain independence and decrease caregiver burden. Hepatic abscess: Drain in place with small amount of output. Patient is supposed to follow-up with interventional radiology within a week in order to have repeat CT as well as possibly for removal. Discussed drain removal and repeat CT with both our in-house radiologist as well as radiologist at outside hospital. All are in agreement that we can perform the repeat imaging here and remove the drain if abscess is reduced enough and there is no longer a fluid collection requiring drainage. Schedule CT abdomen with possible removal of drain on Monday. Left upper extremity pain and swelling: Imaging and report reviewed. No signs of DVT thankfully in the left upper extremity. Swelling has decreased somewhat today, continue utilizing modalities and pain medications as needed. Movement slightly better today. Will start a couple of days of NSAIDs to see if this improves pain and swelling. Hypertension: Values have been stable and within normal limits so far. Continue to monitor blood pressure on a regular basis and adjust for normotension. Goal less than 140/90. Avoid hypotension. Anemia: Consistent with anemia of chronic disease. Folate in normal range but on the lower side. Moderate protein malnutrition: Albumin was low on admission, prealbumin also low at 0.168. Patient on supplements. CKD: Patient's renal function has been stable and within normal limits since admission. Estimated GFR greater than 60 GERD: Continue medications adjust as needed, monitor for symptoms. Insomnia: Start trazodone and monitor All records, vitals, labs and medications were reviewed. No other issues per patient, nursing or therapy. Patient discussed during team conference. Making decent gains with therapy and is pretty good with safety awareness. Does have continued soreness in the left upper extremity including the hand and wrist. Doppler was negative for DVT or thrombophlebitis. Will start some NSAIDs to see if that improves. Nursing notes skin breakdown in the gluteal cleft that appears to be a chronic issue. We will continue working with the patient to achieve functional improvement and possibly discharge her later next week pending further progress. Objective - Exam Narrative Exam: MUSCULOSKELETAL SPECIALTY EXAM CONSTITUTIONAL: Well developed, well nourished, appropriately groomed, slightly obese EENT: Hearing intact to soft voice RESPIRATORY: Clear to auscultation bilaterally, no increased work of breathing CARDIOVASCULAR: Regular Rate/ Rhythm, no swelling, edema or tenderness in BUE or BLE. All extremities warm. GI: + bowel sounds, soft, NTTP, nondistended. Percutaneous drain in right abdomen with expected drainage INTEGUMENTARY: Left upper extremity warm to touch, otherwise normal, no lesion, rash, masses or bruising noted in extremities. MUSCULOSKELETAL: Left upper extremity with decreased range of motion and tenderness to palpation, otherwise BUE and BLE normal without defect, crepitus, subluxation, effusion, arthritic changes or TTP. RUE 4+/5, good ROM, with normal tone. LUE with decreased range of motion and strength due to pain BLE 4/5 good ROM, with normal tone NEURO: CN 2-12 grossly intact. Sensation intact in all extremities. No tremor noted in 4 extremities. POSTURE and GAIT: Sitting posture good. Balance and gait deferred until seen with therapy. PSYCH: Alert, oriented x3, affect appears normal. Insight appears intact. - Constitutional Vitals: Vital Signs - 12hr 11/09/20 11/09/20 11/09/20 21:22 22:00 22:22 Temperature Pulse Rate Respiratory 17 17 Rate Respiratory 17 Rate [Abdomen] Respiratory 17 Rate [Right Cheek] Blood Pressure [Left] O2 Sat by Pulse Oximetry 11/10/20 05:24 Temperature 98.5 F Pulse Rate 86 Respiratory 16 Rate Respiratory Rate [Abdomen] Respiratory Rate [Right Cheek] Blood Pressure 117/61 [Left] O2 Sat by Pulse 92 Oximetry - Allied health notes Allied health notes reviewed: nursing, PT, OT FIMS assessment as documented by PT/OT/ST: Grooming Patient cleans teeth/dentures: Yes Patient omer/brushes hair: Yes Patient washes, rinses and Yes dries face: Patient washes, rinses and Yes dries hands: Patient applies make-up: No Patient performs (no make-up/ 09/06 (100%) shaving): Grooming FIM Score 5. Supervision ([place] applies toothpaste or opens containers.) Toileting Toileting Device Urinal Toileting FIM Score 2. Maximal Assistance (Patient = 25% or more) Social interaction/Memory/Problem solving Social Interaction FIM Score 5. Supervision (Needs supv. <10%. Needs encouragement to participate.) Memory FIM Score 5. Supervision (Needs cueing <10%, stressful/ unfamiliar situations.) Transfers Mode of Locomotion: Wheelchair Bed/Chair/Wheelchair Transfers 4. Minimal Assistance (Patient = 75% or more. FIM Score Needs touching.) Patient transferred to: Shower Shower Transfers FIM Score 4. Minimal Assistance (Patient = 75% or more. Needs touching.) Locomotion- walk/wheelchair Ambulation Distance 126 Eating Eating FIM Score 5. Supervision/Set-Up (Needs help w/ containers, cutting meat, etc.) Dressing-Upper body Patient retrieves clothing No items: Patient applies/removes UE No: n/a prosthesis or orthosis: Upper Body Dressing FIM Score 4. Minimal Assistance (Patient = 75% or more. Needs touching.) Dressing-lower body Patient retrieves clothing No items: Patient applies/removes LE No: n/a prosthesis or orthosis: Lower Body Dressing FIM Score 4. Minimal Assistance (Patient = 75% or more. Needs touching.) - Labs CBC & Chem 7: 11/09/20 06:21 11/09/20 06:21 Labs: Laboratory Results - last 72 hr 11/09/20 11/09/20 11/09/20 06:21 06:21 06:21 WBC 5.4 RBC 2.96 L Hgb 9.1 L Hct 26.6 L MCV 90 MCH 31 MCHC 34 RDW 15.3 H Plt Count 257 Sodium 139 Potassium 3.9 Chloride 99.6 Carbon Dioxide 28 Anion Gap 15 BUN 14 Creatinine 0.9 Estimated GFR > 60 BUN/Creatinine Ratio 16 Glucose 87 Calcium 9.2 Iron 56 TIBC 150 L Ferritin 1207.0 H Prealbumin 0.168 L Vitamin B12 Folate 11/09/20 11/09/20 06:21 06:21 WBC RBC Hgb Hct MCV MCH MCHC RDW Plt Count Sodium Potassium Chloride Carbon Dioxide Anion Gap BUN Creatinine Estimated GFR BUN/Creatinine Ratio Glucose Calcium Iron TIBC Ferritin Prealbumin Vitamin B12 2000 H Folate 10.52 Assessment and Plan Debility secondary to hospitalization with sepsis and liver abscess: Continue to monitor patient for resolution of infection. Antibiotics are continuing for approximately 1 week. Infectious disease available if needed. Percutaneous abdominal drain remains in place with expected drainage, patient will need to follow-up with abdominal CT and possibly have removal of drain in 1 week. We will contact outside hospital and see if our facility can perform the CT versus sending her back to the outside hospital. Continue to monitor for any worsening signs or symptoms of infection or significant changes in drainage from liver. Patient also had UTI and suspected pneumonia in outside hospital, will need to monitor for return of either of these issues. Pain, swelling and redness of left upper extremity: Located at prior IV site which patient states was left in for a prolonged period of time. Concern for possible infiltration versus thrombophlebitis versus DVT. Doppler negative for thrombophlebitis or DVT. Currently providing ice for therapeutic relief along with pain medications. Hypertension: Goal less than 140/90. Avoid hypotension. Continue medications and monitor blood pressure on a regular basis and adjust medications as needed for normotension. On exam patient is slightly elevated with blood pressure this morning. Will monitor over the next day or 2 and adjust as needed. She is currently on maximal dose of amlodipine, but we do have room to increase losartan. Anemia: Normocytic normochromic currently. We will continue to monitor and transfuse for hemoglobin less than 7. Work-up to determine if patient needs replacement of nutrients. Moderate protein malnutrition: Start supplements, dietitian consult. Monitor oral intake and just supplements as needed. CKD?: Patient had acute on chronic kidney disease at outside hospital. Patient states that she does not have any diagnosis that she knows of of CKD. We will continue to monitor renal function and adjust medications as needed if we see further issues. Currently patient's renal function appears to be normal. GERD: Continue Protonix. Insomnia: Start trazodone monitor for improvement. ADL dysfunction: OT will work on improving ability to perform ADLs (including assistive devices) to increase independence and decrease caregiver burden and improve functional transfers and mobility training. Difficulty walking: PT will work on gait training and proper use of assistive devices and advance as appropriate to use of stairs and outside ambulation on uneven surfaces. Unsteadiness on feet: PT will work on improving static and dynamic sitting and standing balance as well as proper use of assistive devices to decrease risk of falls. Abnormality of gait: PT will work to improve safety and efficiency of gait through neuromotor training and gait training along with instruction on proper use of assistive devices. Muscle weakness: PT & OT will work on strengthening exercises to improve fu nctional strength including mixture of closed and open kinetic chain exercises. Debility: PT & OT will work on improving overall functional status to improve participation with ADLs, mobility and social involvement. Fatigue: PT & OT will work on improving endurance through aerobic exercises and therapeutic activity while monitoring patients tolerance for activity and vital signs as needed. DVT ppx: Heparin twice daily Pain: Continue physical modalities in therapy and pain medications as needed to achieve functional pain control. Sleep: Monitor and address as needed. Bowel: Monitor and address as needed. Appetite: Monitor and address as needed. Discharge planning: Pending therapy progress and care plan meeting. Will continue discussion with therapy team, SW, patient and family. We will look to discharge sometime next week and equipment at discharge will depend on progress between now and then. Restrictions/ Precautions: Falls, percutaneous abdominal drain WB status: FWB Functional Hx: ADLs: Independent Cognition: Independent Mobility: No AD Barriers to Discharge: Decreased mobility and ability to perform self care, balance deficits, weakness Estimated Length of Stay: 1014 days Discharge Destination: Home with family
[2020-11-10] MEDS: LOSARTAN 50 MG TAB PO SCH (09:41)
[2020-11-10] MEDS: PANTOPRAZOLE 40 MG TAB PO SCH (09:42)
[2020-11-10] MEDS: amLODIPine 10 MG TAB PO SCH (09:42)
[2020-11-10] MEDS: HEPARIN 5,000 UNIT/1 ML VIAL SUB-Q SCH ×2 (09:45→22:01)
[2020-11-10] MEDS: NAPROXEN 375 MG TAB PO SCH ×2 (12:29→22:02)
[2020-11-10] MEDS: levoFLOXacin 500 MG TAB PO SCH (22:02)
[2020-11-11] MEDS: metroNIDAZOLE 500 MG TAB PO SCH ×3 (05:32→21:37)
--- NOTE | 2020-11-11 07:49 | Cat Scan Report ---
CT ABDOMEN AND PELVIS WITHOUT CONTRAST INDICATION / CLINICAL INFORMATION: Hepatic Abscess. TECHNIQUE: Axial CT images were obtained through the abdomen and pelvis without IV contrast. Sagittal and hernandez l reformatted images. All CT scans at this location are performed using CT dose reduction for ALARA b y means of automated exposure control. COMPARISON: No relevant comparison at this facility. FINDINGS: LOWER CHEST: Lung bases are clear. Normal heart size. Small hiatal hernia. LIVER: Percutaneous drain terminates in the lower anterior right hepatic lobe near the gallbladder fo ssa. There is no residual fluid collection surrounding the catheter or within the liver consistent wi th hepatic abscess. Complete drainage is suspected. Otherwise the liver parenchyma is unremarkable. GALLBLADDER: Surgically removed. BILE DUCTS: No significant abnormality. PANCREAS: No significant abnormality. SPLEEN: No significant abnormality. ADRENALS: No significant abnormality. RIGHT KIDNEY and URETER: No significant abnormality. LEFT KIDNEY and URETER: No significant abnormality. STOMACH and SMALL BOWEL: No significant abnormality. COLON: There is severe diffuse diverticulosis of the colon. Moderate fecal retention. No acute inflam mation or large colon mass is detected. APPENDIX: Not identified, correlate with history. PERITONEUM: No free fluid. No free air. No fluid collection. LYMPH NODES: No significant adenopathy. AORTA and ARTERIES: No significant abnormality. IVC and VEINS: No significant abnormality. URINARY BLADDER: No significant abnormality. REPRODUCTIVE ORGANS: No significant abnormality. ADDITIONAL FINDINGS: None. SKELETAL SYSTEM: Mild thoracolumbar spondylosis. No acute osseous findings or bone lesion. IMPRESSION: Complete resolution of the hepatic abscess is suspected as described. No acute process in the abdomen or pelvis. Diffuse diverticulosis of the colon. Small hiatal hernia. Signer Name: Bryan Khan Jr, MD Signed: 11/11/2020 7:45 AM Workstation Name: [id number]
[2020-11-11] MEDS: PANTOPRAZOLE 40 MG TAB PO SCH (10:16)
[2020-11-11] MEDS: amLODIPine 10 MG TAB PO SCH (10:16)
[2020-11-11] MEDS: LOSARTAN 50 MG TAB PO SCH (10:16)
[2020-11-11] MEDS: HEPARIN 5,000 UNIT/1 ML VIAL SUB-Q SCH ×2 (10:17→21:36)
[2020-11-11] MEDS: NAPROXEN 375 MG TAB PO SCH ×2 (10:27→21:36)
--- NOTE | 2020-11-11 14:31 | Progress Note ---
Subjective Date of service: 11/11/20 Principal diagnosis: Debility Interval history: 80-year-old female who presented to the outside hospital on 10/19/2020 with complaints of generalized abdominal pain for the past 2 weeks accompanied with fever and chills for the past week. She is Korean speaking only. Patient was worked up and found to have a mass on her liver and was admitted for further treatment. Denied any decreased weight but did have decreased appetite over the same. Along with increased urinary frequency without dysuria. Initial work-up showed elevated WBC at 21.4, patient was afebrile and tachycardic. CT abdomen pelvis showed extensive colonic diverticulosis, hiatal hernia, hepatic mass on the right lobe, mottled hepatic hypodensity in both lobes and further advanced imaging was recommended. Antibiotics were started for sepsis. She developed a fever on 10/22 of 101.6 and infectious disease was consulted. Blood cultures were negative, she was found to have a UTI and also developed pneumonia during her stay, both of which were treated with antibiotics. A biopsy was taken of her liver and a percutaneous abdominal drain was placed by interventional radiology on 10/29 . Interventional radiology requested a follow-up with CT within 1 week of discharge for possibly removing the drain. We will try to coordinate with them to see if we can perform the imaging here versus sending her out. After the patient was medically stabilized they were transferred for further rehabilitation. All available medical records have been reviewed. Plan of care was discussed with patient. Language line was offered and available with the patient during examination, patient declined and stated we could speak in [place]. I reminded her to please let me know she did not under stand anything and we would utilize the language line to ensure she had full understanding for her care. Patient continues on oral antibiotics. Patient also noted to have acute on chronic kidney disease (CKD 3) per the medical record however she denies this. She does live alone with her who is recently had a stroke and is primary caregiver. On examination her left upper extremity is warm, red and tender to palpation near her previous IV site, concern for either infiltration versus DVT versus thrombophlebitis. Doppler ordered to evaluate further Interval History: Patient is participating in therapy and making reasonable progress. Taking rest breaks as needed. +BM. Denies palpitations, dyspnea, cough, N/V, or joint pain. Continues to have left upper extremity pain and swelling but this has decreased. Debility: Continue therapy and monitor patient for improvement in ability to move around, maintain independence and decrease caregiver burden. Hepatic abscess: CT abdomen pelvis was performed today. Imaging and report personally reviewed, no signs of remaining fluid collection at this time. I did discuss the results with the radiologist as the drain was not removed and he stated that we could remove the drain. Left upper extremity pain and swelling: Imaging and report reviewed. No signs of DVT thankfully in the left upper extremity. Swelling has decreased somewhat today, continue utilizing modalities and pain medications as needed. Movement slightly better today. Will start a couple of days of NSAIDs to see if this improves pain and swelling. Improving as expected Hypertension: Values have been stable and within normal limits so far. Continue to monitor blood pressure on a regular basis and adjust for normotension. Goal less than 140/90. Avoid hypotension. Anemia: Consistent with anemia of chronic disease. Folate in normal range but o n the lower side. Moderate protein malnutrition: Albumin was low on admission, prealbumin also low at 0.168. Patient on supplements. CKD: Patient's renal function has been stable and within normal limits since admission. Estimated GFR greater than 60 GERD: Continue medications adjust as needed, monitor for symptoms. Insomnia: Start trazodone and monitor All records, vitals, labs and medications were reviewed. No other issues per patient, nursing or therapy. Pigtail drain removal After reviewing imaging of the of the abdomen and conferring with the radiologist, patient was prepped for removal of the drain. ALEXIS was disconnected from the catheter, tape was removed from the skin. Skin was cleansed with alcohol and patted dry. Sutures were clipped and removed from the skin. Retaining suture for the pigtail catheter was cut and pigtail catheter was removed fully intact without incident. Slight drainage from abdominal site was cleansed, skin surrounding the area was cleansed and a Steri-Strip was placed over the drain site and covered with gauze and tape. Patient had no compl ications with drain removal. Approximately 40 minutes was spent on patient care today including counseling coordinating care with radiology as stated above and time spent removing abdominal drain. Objective - Exam Narrative Exam: MUSCULOSKELETAL SPECIALTY EXAM CONSTITUTIONAL: Well developed, well nourished, appropriately groomed, slightly obese EENT: Hearing intact to soft voice RESPIRATORY: Clear to auscultation bilaterally, no increased work of breathing CARDIOVASCULAR: Regular Rate/ Rhythm, no swelling, edema or tenderness in BUE or BLE. All extremities warm. GI: + bowel sounds, soft, NTTP, nondistended. Percutaneous drain removed and drain site bandaged. INTEGUMENTARY: Left upper extremity warm to touch, otherwise normal, no lesion, rash, masses or bruising noted in extremities. MUSCULOSKELETAL: Left upper extremity with decreased range of motion and tenderness to palpation, otherwise BUE and BLE normal without defect, crepitus, subluxation, effusion, arthritic changes or TTP. RUE 4+/5, good ROM, with normal tone. LUE with decreased range of motion and strength due to pain BLE 4/5 good ROM, with normal tone NEURO: CN 2-12 grossly intact. Sensation intact in all extremities. No tremor noted in 4 extremities. POSTURE and GAIT: Sitting posture good. PSYCH: Alert, oriented x3, affect appears normal. Insight appears intact. - Constitutional Vitals: Vital Signs - 12hr 11/11/20 11/11/20 11/11/20 05:40 07:51 12:05 Temperature 98.2 F 98.6 F 98.9 F Pulse Rate 90 87 104 H Respiratory 18 18 18 Rate Blood Pressure 137/66 130/57 124/72 O2 Sat by Pulse 94 96 94 Oximetry - Allied health notes Allied health notes reviewed: nursing, PT, OT FIMS assessment as documented by PT/OT/ST: Grooming Patient cleans teeth/dentures: Yes Patient omer/brushes hair: Yes Patient washes, rinses and Yes dries face: Patient washes, rinses and Yes dries hands: Patient applies make-up: No Patient performs (no make-up/ /4 (100%) shaving): Grooming FIM Score 5. Supervision ([place] applies toothpaste or opens containers.) Toileting Toileting Device Urinal Toileting FIM Score 2. Maximal Assistance (Patient = 25% or more) Social interaction/Memory/Problem solving Social Interaction FIM Score 6. Mod. [place] (Mostly appropriate. May need meds. No supv.) Memory FIM Score 6. Modified [place](Mild difficulty remembering people/routines.) Transfers Mode of Locomotion: Wheelchair Bed/Chair/Wheelchair Transfers 4. Minimal Assistance (Patient = 75% or more. FIM Score Needs touching.) Patient transferred to: Shower Shower Transfers FIM Score 4. Minimal Assistance (Patient = 75% or more. Needs touching.) Locomotion- walk/wheelchair Ambulation Distance 126 Eating Eating FIM Score 6. Modified [place] (Special consistency or uses device.) Dressing-Upper body Patient retrieves clothing No items: Patient applies/removes UE No: n/a prosthesis or orthosis: Upper Body Dressing FIM Score 4. Minimal Assistance (Patient = 75% or more. Needs touching.) Dressing-lower body Patient retrieves clothing No items: Patient applies/removes LE No: n/a prosthesis or orthosis: Lower Body Dressing FIM Score 4. Minimal Assistance (Patient = 75% or more. Needs touching.) - Labs CBC & Chem 7: 11/09/20 06:21 11/09/20 06:21 Labs: Laboratory Results - last 72 hr 11/09/20 11/09/20 11/09/20 06:21 06:21 06:21 WBC 5.4 RBC 2.96 L Hgb 9.1 L Hct 26.6 L MCV 90 MCH 31 MCHC 34 RDW 15.3 H Plt Count 257 Sodium 139 Potassium 3.9 Chloride 99.6 Carbon Dioxide 28 Anion Gap 15 BUN 14 Creatinine 0.9 Estimated GFR > 60 BUN/Creatinine Ratio 16 Glucose 87 Calcium 9.2 Iron 56 TIBC 150 L Ferritin 1207.0 H Prealbumin 0.168 L Vitamin B12 Folate 11/09/20 11/09/20 06:21 06:21 WBC RBC Hgb Hct MCV MCH MCHC RDW Plt Count Sodium Potassium Chloride Carbon Dioxide Anion Gap BUN Creatinine Estimated GFR BUN/Creatinine Ratio Glucose Calcium Iron TIBC Ferritin Prealbumin Vitamin B12 2000 H Folate 10.52 Assessment and Plan Debility secondary to hospitalization with sepsis and liver abscess: Continue to monitor patient for resolution of infection. Antibiotics are continuing for approximately 1 week. Infectious disease available if needed. Percutaneous abdominal drain removed today after CT abdomen pelvis showed complete resolution of hepatic abscess. Conferred with radiologist to confirm that they were okay with drain removal. Pain, swelling and redness of left upper extremity: Located at prior IV site which patient states was left in for a prolonged period of time. Concern for possible infiltration versus thrombophlebitis versus DVT. Doppler negative for thrombophlebitis or DVT. Currently providing ice for therapeutic relief along with pain medications/NSAIDs. Improving Hypertension: Goal less than 140/90. Avoid hypotension. Continue medications and monitor blood pressure on a regular basis and adjust medications as needed for normotension. On exam patient is slightly elevated with blood pressure this morning. Will monitor over the next day or 2 and adjust as needed. She is currently on maximal dose of amlodipine, but we do have room to increase losartan. Anemia: Normocytic normochromic currently. We will continue to monitor and transfuse for hemoglobin less than 7. Moderate protein malnutrition: Start supplements, dietitian consult. Monitor oral intake and just supplements as needed. CKD?: Patient had acute on chronic kidney disease at outside hospital. Patient states that she does not have any diagnosis that she knows of of CKD. We will continue to monitor renal function and adjust medications as needed if we see further issues. Currently patient's renal function appears to be normal. GERD: Continue Protonix. Insomnia: Start trazodone monitor for improvement. ADL dysfunction: OT will work on improving ability to perform ADLs (including assistive devices) to increase independence and decrease caregiver burden and improve functional transfers and mobility training. Difficulty walking: PT will work on gait training and proper use of assistive devices and advance as appropriate to use of stairs and outside ambulation on uneven surfaces. Unsteadiness on feet: PT will work on improving static and dynamic sitting and standing balance as well as proper use of assistive devices to decrease risk of falls. Abnormality of gait: PT will work to improve safety and efficiency of gait through neuromotor training and gait training along with instruction on proper use of assistive devices. Muscle weakness: PT & OT will work on strengthening exercises to improve functional strength including mixture of closed and open kinetic chain exercises. Debility: PT & OT will work on improving overall functional status to improve participation with ADLs, mobility and social involvement. Fatigue: PT & OT will work on improving endurance through aerobic exercises and therapeutic activity while monitoring patients tolerance for activity and vital signs as needed. DVT ppx: Heparin twice daily Pain: Continue physical modalities in therapy and pain medications as needed to achieve functional pain control. Sleep: Monitor and address as needed. Bowel: Monitor and address as needed. Appetite: Monitor and address as needed. Discharge planning: Pending therapy progress and care plan meeting. Will continue discussion with therapy team, SW, patient and family. We will look to discharge next Monday. Patient give us the name of son that she wants to come in for training. Restrictions/ Precautions: Falls, percutaneous abdominal drain WB status: FWB Functional Hx: ADLs: Independent Cognition: Independent Mobility: No AD Barriers to Discharge: Decreased mobility and ability to perform self care, balance deficits, weakness Estimated Length of Stay: 1014 days Discharge Destination: Home with family
[2020-11-11] MEDS: traZODone 50 MG TAB PO PRN (21:37)
[2020-11-12] MEDS: metroNIDAZOLE 500 MG TAB PO SCH ×3 (06:13→22:43)
[2020-11-12] MEDS: HEPARIN 5,000 UNIT/1 ML VIAL SUB-Q SCH ×3 (08:26→22:37)
[2020-11-12] MEDS: LOSARTAN 50 MG TAB PO SCH (08:26)
[2020-11-12] MEDS: amLODIPine 10 MG TAB PO SCH (08:26)
[2020-11-12] MEDS: NAPROXEN 375 MG TAB PO SCH ×2 (08:26→22:38)
[2020-11-12] MEDS: PANTOPRAZOLE 40 MG TAB PO SCH (08:27)
--- NOTE | 2020-11-12 12:32 | Progress Note ---
Subjective Date of service: 11/12/20 Principal diagnosis: Debility Interval history: 80-year-old female who presented to the outside hospital on 10/19/2020 with complaints of generalized abdominal pain for the past 2 weeks accompanied with fever and chills for the past week. She is Icelandic speaking only. Patient was worked up and found to have a mass on her liver and was admitted for further treatment. Denied any decreased weight but did have decreased appetite over the same. Along with increased urinary frequency without dysuria. Initial work-up showed elevated WBC at 21.4, patient was afebrile and tachycardic. CT abdomen pelvis showed extensive colonic diverticulosis, hiatal hernia, hepatic mass on the right lobe, mottled hepatic hypodensity in both lobes and further advanced imaging was recommended. Antibiotics were started for sepsis. She developed a fever on 10/22 of 101.6 and infectious disease was consulted. Blood cultures were negative, she was found to have a UTI and also developed pneumonia during her stay, both of which were treated with antibiotics. A biopsy was taken of her liver and a percutaneous abdominal drain was placed by interventional radiology on 10/29 . Interventional radiology requested a follow-up with CT within 1 week of discharge for possibly removing the drain. We will try to coordinate with them to see if we can perform the imaging here versus sending her out. After the patient was medically stabilized they were transferred for further rehabilitation. All available medical records have been reviewed. Plan of care was discussed with patient. Language line was offered and available with the patient during examination, patient declined and stated we could speak in Occitan. I reminded her to please let me know she did not under stand anything and we would utilize the language line to ensure she had full understanding for her care. Patient continues on oral antibiotics. Patient also noted to have acute on chronic kidney disease (CKD 3) per the medical record however she denies this. She does live alone with her who is recently had a stroke and is primary caregiver. On examination her left upper extremity is warm, red and tender to palpation near her previous IV site, concern for either infiltration versus DVT versus thrombophlebitis. Doppler ordered to evaluate further Interval History: Patient is participating in therapy and making reasonable progress. Taking rest breaks as needed. +BM. Denies palpitations, dyspnea, cough, N/V, or joint pain. Continues to have left upper extremity pain and swelling but this has decreased. Debility: Continue therapy and monitor patient for improvement in ability to move around, maintain independence and decrease caregiver burden. Hepatic abscess: Continue take antibiotics until completed. Drain was removed on 11/[address] which showed no further fluid collection to be drained. Abdominal wound for catheter drain was secured with Steri-Strips and showed no signs of drainage today on taking down the bandage. Left upper extremity pain and swelling: Imaging and report reviewed. No signs of DVT in the left upper extremity. Swelling continues to decrease, continue utilizing modalities and pain medications as needed. Movement better today. Improving with NSAIDs. Hypertension: Values have been stable and within normal limits so far. Continue to monitor blood pressure on a regular basis and adjust for normotension. Goal less than 140/90. Avoid hypotension. Anemia: Consistent with anemia of chronic disease. Folate in normal range but on the lower side. Moderate protein malnutrition: Albumin was low on admission, prealbumin also low at 0.168. Patient on supplements. CKD: Patient's renal function has been stable and within normal limits since admission. Estimated GFR greater than 60 GERD: Continue medications adjust as needed, monitor for symptoms. Insomnia: Start trazodone and monitor, patient sleeping better. All records, vitals, labs and medications were reviewed. No other issues per patient, nursing or therapy. Objective - Exam Narrative Exam: MUSCULOSKELETAL SPECIALTY EXAM CONSTITUTIONAL: Well developed, well nourished, appropriately groomed, slightly obese EENT: Hearing intact to soft voice RESPIRATORY: Clear to auscultation bilaterally, no increased work of breathing CARDIOVASCULAR: Regular Rate/ Rhythm, no swelling, edema or tenderness in BUE or BLE. All extremities warm. GI: + bowel sounds, soft, NTTP, nondistended. Drain site with scant drainage overnight, bandage reapplied. INTEGUMENTARY: Left upper extremity warm to touch, otherwise normal, no lesion, rash, masses or bruising noted in extremities. MUSCULOSKELETAL: Left upper extremity with decreased range of motion and tenderness to palpation, otherwise BUE and BLE normal without defect, crepitus, subluxation, effusion, arthritic changes or TTP. RUE 4+/5, good ROM, with normal tone. LUE with decreased range of motion and strength due to pain BLE 4/5 good ROM, with normal tone NEURO: CN 2-12 grossly intact. Sensation intact in all extremities. No tremor noted in 4 extremities. POSTURE and GAIT: Sitting posture good. PSYCH: Alert, oriented x3, affect appears normal. Insight appears intact. - Constitutional Vitals: Vital Signs - 12hr 11/12/20 11/12/20 04:44 07:38 Temperature 98 F 98.1 F Pulse Rate 82 85 Respiratory 16 18 Rate Blood Pressure 126/71 Blood Pressure 107/56 [Left] O2 Sat by Pulse 94 94 Oximetry - Allied health notes Allied health notes reviewed: nursing, PT, OT FIMS assessment as documented by PT/OT/ST: Grooming Patient cleans teeth/dentures: Yes Patient omer/brushes hair: Yes Patient washes, rinses and Yes dries face: Patient washes, rinses and Yes dries hands: Patient applies make-up: No Patient performs (no make-up/ / (100%) shaving): Grooming FIM Score 5. Supervision ([place] applies toothpaste or opens containers.) Toileting Toileting Device Urinal Toileting FIM Score 2. Maximal Assistance (Patient = 25% or more) Social interaction/Memory/Problem solving Social Interaction FIM Score 6. Mod. [place] (Mostly appropriate. May need meds. No supv.) Memory FIM Score 6. Modified [place](Mild difficulty remembering people/routines.) Transfers Mode of Locomotion: Wheelchair Bed/Chair/Wheelchair Transfers 4. Minimal Assistance (Patient = 75% or more. FIM Score Needs touching.) Patient transferred to: Shower Shower Transfers FIM Score 4. Minimal Assistance (Patient = 75% or more. Needs touching.) Locomotion- walk/wheelchair Ambulation Distance 126 Eating Eating FIM Score 6. Modified [place] (Special consistency or uses device.) Dressing-Upper body Patient retrieves clothing No items: Patient applies/removes UE No: n/a prosthesis or orthosis: Upper Body Dressing FIM Score 4. Minimal Assistance (Patient = 75% or more. Needs touching.) Dressing-lower body Patient retrieves clothing No items: Patient applies/removes LE No: n/a prosthesis or orthosis: Lower Body Dressing FIM Score 4. Minimal Assistance (Patient = 75% or more. Needs touching.) - Labs CBC & Chem 7: 11/09/20 06:21 11/09/20 06:21 Assessment and Plan Debility secondary to hospitalization with sepsis and liver abscess: Continue to monitor patient for resolution of infection. Antibiotics continued until completed course. Infectious disease available if needed. Percutaneous abdominal drain removed 11/11. Pain, swelling and redness of left upper extremity: Located at prior IV site which patient states was left in for a prolonged period of time. Concern for possible infiltration versus thrombophlebitis versus DVT. Doppler negative for thrombophlebitis or DVT. Currently providing ice for therapeutic relief along with pain medications/NSAIDs. Improving Hypertension: Goal less than 140/90. Avoid hypotension. Continue medications and monitor blood pressure on a regular basis and adjust medications as needed for normotension. On exam patient is slightly elevated with blood pressure this morning. Will monitor over the next day or 2 and adjust as needed. She is currently on maximal dose of amlodipine, but we do have room to increase losartan. Anemia: Normocytic normochromic currently. We will continue to monitor and transfuse for hemoglobin less than 7. Moderate protein malnutrition: Start supplements, dietitian consult. Monitor oral intake and just supplements as needed. CKD?: Patient had acute on chronic kidney disease at outside hospital. Patient states that she does not have any diagnosis that she knows of of CKD. We will continue to monitor renal function and adjust medications as needed if we see further issues. Currently patient's renal function appears to be normal. GERD: Continue Protonix. Insomnia: Start trazodone monitor for improvement. ADL dysfunction: OT will work on improving ability to perform ADLs (including assistive devices) to increase independence and decrease caregiver burden and improve functional transfers and mobility training. Difficulty walking: PT will work on gait training and proper use of assistive devices and advance as appropriate to use of stairs and outside ambulation on uneven surfaces. Unsteadiness on feet: PT will work on improving static and dynamic sitting and standing balance as well as proper use of assistive devices to decrease risk of falls. Abnormality of gait: PT will work to improve safety and efficiency of gait through neuromotor training and gait training along with instruction on proper use of assistive devices. Muscle weakness: PT & OT will work on strengthening exercises to improve functional strength including mixture of closed and open kinetic chain exercis es. Debility: PT & OT will work on improving overall functional status to improve participation with ADLs, mobility and social involvement. Fatigue: PT & OT will work on improving endurance through aerobic exercises and therapeutic activity while monitoring patients tolerance for activity and vital signs as needed. DVT ppx: Heparin twice daily Pain: Continue physical modalities in therapy and pain medications as needed to achieve functional pain control. Sleep: Monitor and address as needed. Bowel: Monitor and address as needed. Appetite: Monitor and address as needed. Discharge planning: Pending therapy progress and care plan meeting. Will continue discussion with therapy team, SW, patient and family. We will look to discharge next Monday. Patient give us the name of son that she wants to come in for training. Will hopefully have the patient at level using cane by the time of discharge. Restrictions/ Precautions: Falls, percutaneous abdominal drain WB status: FWB Functional Hx: ADLs: Independent Cognition: Independent Mobility: No AD Barriers to Discharge: Decreased mobility and ability to perform self care, balance deficits, weakness Estimated Length of Stay: 1014 days Discharge Destination: Home with family
[2020-11-12] MEDS: levoFLOXacin 500 MG TAB PO SCH (20:40)
[2020-11-12] MEDS: traZODone 50 MG TAB PO PRN (22:38)
[2020-11-13] MEDS: metroNIDAZOLE 500 MG TAB PO SCH ×3 (05:51→22:00)
[2020-11-13 06:55] LABS: Hematocrit 28.9 % (30.3-42.9); Hemoglobin 9.7 gm/dl (10.1-14.3); Mean Corpuscular HGB Conc 34 % (30-34); Mean Corpuscular Volume 90 fl (79-97); Platelet Count 257 K/mm3 (140-440); Red Blood Count 3.21 M/mm3 (3.65-5.03); Red Cell Distribution Width 15.9 % (13.2-15.2)
[2020-11-13] MEDS: amLODIPine 10 MG TAB PO SCH (07:55)
[2020-11-13] MEDS: LOSARTAN 50 MG TAB PO SCH (07:55)
[2020-11-13] MEDS: PANTOPRAZOLE 40 MG TAB PO SCH (07:55)
[2020-11-13] MEDS: NAPROXEN 375 MG TAB PO SCH (07:56)
--- NOTE | 2020-11-13 08:31 | Progress Note ---
Subjective Date of service: 11/13/20 Principal diagnosis: Debility Interval history: 80-year-old female who presented to the outside hospital on 10/19/2020 with complaints of generalized abdominal pain for the past 2 weeks accompanied with fever and chills for the past week. She is Mongolian speaking only. Patient was worked up and found to have a mass on her liver and was admitted for further treatment. Denied any decreased weight but did have decreased appetite over the same. Along with increased urinary frequency without dysuria. Initial work-up showed elevated WBC at 21.4, patient was afebrile and tachycardic. CT abdomen pelvis showed extensive colonic diverticulosis, hiatal hernia, hepatic mass on the right lobe, mottled hepatic hypodensity in both lobes and further advanced imaging was recommended. Antibiotics were started for sepsis. She developed a fever on 10/22 of 101.6 and infectious disease was consulted. Blood cultures were negative, she was found to have a UTI and also developed pneumonia during her stay, both of which were treated with antibiotics. A biopsy was taken of her liver and a percutaneous abdominal drain was placed by interventional radiology on 10/29 . Interventional radiology requested a follow-up with CT within 1 week of discharge for possibly removing the drain. We will try to coordinate with them to see if we can perform the imaging here versus sending her out. After the patient was medically stabilized they were transferred for further rehabilitation. All available medical records have been reviewed. Plan of care was discussed with patient. Language line was offered and available with the patient during examination, patient declined and stated we could speak in Polish. I reminded her to please let me know she did not under stand anything and we would utilize the language line to ensure she had full understanding for her care. Patient continues on oral antibiotics. Patient also noted to have acute on chronic kidney disease (CKD 3) per the medical record however she denies this. She does live alone with her who is recently had a stroke and is primary caregiver. On examination her left upper extremity is warm, red and tender to palpation near her previous IV site, concern for either infiltration versus DVT versus thrombophlebitis. Doppler ordered to evaluate further Interval History: Patient is participating in therapy and making reasonable progress. Taking rest breaks as needed. +BM. Denies palpitations, dyspnea, cough, N/V, or joint pain. Left lower extremity pain improved with NSAIDs, modalities in therapy. Debility: Continue therapy and monitor patient for improvement in ability to move around, maintain independence and decrease caregiver burden. Hepatic abscess: Continue take antibiotics until completed. Drain was removed on 11/[address] which showed no further fluid collection to be drained. Abdominal wound for catheter drain was secured with Steri-Strips. Left upper extremity pain and swelling: Imaging and report reviewed. No signs of DVT in the left upper extremity. Swelling continues to decrease, continue utilizing modalities and pain medications as needed. Improving Hypertension: Values have been stable and within normal limits so far. Continue to monitor blood pressure on a regular basis and adjust for normotension. Goal less than 140/90. Avoid hypotension. Anemia: Consistent with anemia of chronic disease. Folate in normal range but o n the lower side. Moderate protein malnutrition: Albumin was low on admission, prealbumin also low at 0.168. Patient on supplements. CKD: Patient's renal function has been stable and within normal limits since admission. Estimated GFR greater than 60 GERD: Continue medications adjust as needed, monitor for symptoms. Insomnia: Start trazodone and monitor, patient sleeping better. All records, vitals, labs and medications were reviewed. No other issues per patient, nursing or therapy. Objective - Exam Narrative Exam: MUSCULOSKELETAL SPECIALTY EXAM CONSTITUTIONAL: Well developed, well nourished, appropriately groomed, slightly obese EENT: Hearing intact to soft voice RESPIRATORY: Clear to auscultation bilaterally, no increased work of breathing CARDIOVASCULAR: Regular Rate/ Rhythm, no swelling, edema or tenderness in BUE or BLE. All extremities warm. GI: + bowel sounds, soft, NTTP, nondistended. Drain site bandage CDI. INTEGUMENTARY: Left upper extremity warm to touch, otherwise normal, no lesion, rash, masses or bruising noted in extremities. MUSCULOSKELETAL: Left upper extremity with decreased range of motion and tenderness to palpation, otherwise BUE and BLE normal without defect, crepitus, subluxation, effusion, arthritic changes or TTP. RUE 4+/5, good ROM, with normal tone. LUE with decreased range of motion and strength due to pain BLE 4/5 good ROM, with normal tone NEURO: CN 2-12 grossly intact. Sensation intact in all extremities. No tremor noted in 4 extremities. POSTURE and GAIT: Sitting posture good. PSYCH: Alert, oriented x3, affect appears normal. Insight appears intact. - Constitutional Vitals: Vital Signs - 12hr 11/13/20 11/13/20 11/13/20 04:41 07:12 07:55 Temperature 98.3 F 98.6 F Pulse Rate 92 H 83 84 Respiratory 16 16 Rate Blood Pressure 124/70 130/70 Blood Pressure 120/63 [Left] O2 Sat by Pulse 96 96 Oximetry - Allied health notes Allied health notes reviewed: nursing, PT, OT FIMS assessment as documented by PT/OT/ST: Grooming Patient cleans teeth/dentures: Yes Patient omer/brushes hair: Yes Patient washes, rinses and Yes dries face: Patient washes, rinses and Yes dries hands: Patient applies make-up: No Patient performs (no make-up/ 4/4 (100%) shaving): Grooming FIM Score 5. Supervision ([place] applies toothpaste or opens containers.) Toileting Toileting Device Urinal Toileting FIM Score 2. Maximal Assistance (Patient = 25% or more) Social interaction/Memory/Problem solving Social Interaction FIM Score 6. Mod. [place] (Mostly appropriate. May need meds. No supv.) Memory FIM Score 6. Modified [place](Mild difficulty remembering people/routines.) Transfers Mode of Locomotion: Wheelchair Bed/Chair/Wheelchair Transfers 4. Minimal Assistance (Patient = 75% or more. FIM Score Needs touching.) Patient transferred to: Shower Shower Transfers FIM Score 4. Minimal Assistance (Patient = 75% or more. Needs touching.) Locomotion- walk/wheelchair Ambulation Distance 126 Eating Eating FIM Score 6. Modified [place] (Special consistency or uses device.) Dressing-Upper body Patient retrieves clothing No items: Patient applies/removes UE No: n/a prosthesis or orthosis: Upper Body Dressing FIM Score 4. Minimal Assistance (Patient = 75% or more. Needs touching.) Dressing-lower body Patient retrieves clothing No items: Patient applies/removes LE No: n/a prosthesis or orthosis: Lower Body Dressing FIM Score 4. Minimal Assistance (Patient = 75% or more. Needs touching.) - Labs CBC & Chem 7: 11/13/20 06:42 11/09/20 06:21 Labs: Laboratory Results - last 72 hr 11/13/20 06:42 WBC 3.6 L RBC 3.21 L Hgb 9.7 L Hct 28.9 L MCV 90 MCH 30 MCHC 34 RDW 15.9 H Plt Count 257 Assessment and Plan Debility secondary to hospitalization with sepsis and liver abscess: Continue to monitor patient for resolution of infection. Antibiotics continued until completed course. Infectious disease available if needed. Percutaneous abdo yulia drain removed 11/11. Pain, swelling and redness of left upper extremity: Located at prior IV site which patient states was left in for a prolonged period of time. Concern for possible infiltration versus thrombophlebitis versus DVT. Doppler negative for thrombophlebitis or DVT. Currently providing ice for therapeutic relief along with pain medications/NSAIDs. Improving Hypertension: Goal less than 140/90. Avoid hypotension. Continue medications and monitor blood pressure on a regular basis and adjust medications as needed for normotension. She is currently on maximal dose of amlodipine, but we do have room to increase losartan. Anemia: Normocytic normochromic currently. We will continue to monitor and transfuse for hemoglobin less than 7. Moderate protein malnutrition: Start supplements, dietitian consult. Monitor oral intake and just supplements as needed. CKD?: Patient had acute on chronic kidney disease at outside hospital. Patient states that she does not have any diagnosis that she knows of of CKD. We will continue to monitor renal function and adjust medications as needed if we see further issues. Currently patient's renal function appears to be normal. GERD: Continue Protonix. Insomnia: Start trazodone monitor for improvement. ADL dysfunction: OT will work on improving ability to perform ADLs (including assistive devices) to increase independence and decrease caregiver burden and improve functional transfers and mobility training. Difficulty walking: PT will work on gait training and proper use of assistive devices and advance as appropriate to use of stairs and outside ambulation on uneven surfaces. Unsteadiness on feet: PT will work on improving static and dynamic sitting and standing balance as well as proper use of assistive devices to decrease risk of falls. Abnormality of gait: PT will work to improve safety and efficiency of gait through neuromotor training and gait training along with instruction on proper use of assistive devices. Muscle weakness: PT & OT will work on strengthening exercises to improve functional strength including mixture of closed and open kinetic chain exercises. Debility: PT & OT will work on improving overall functional status to improve participation with ADLs, mobility and social involvement. Fatigue: PT & OT will work on improving endurance through aerobic exercises and therapeutic activity while monitoring patients tolerance for activity and vital signs as needed. DVT ppx: Heparin twice daily Pain: Continue physical modalities in therapy and pain medications as needed to achieve functional pain control. Sleep: Monitor and address as needed. Bowel: Monitor and address as needed. Appetite: Monitor and address as needed. Discharge planning: Pending therapy progress and care plan meeting. Will continue discussion with therapy team, SW, patient and family. We will look to discharge next Monday. Patient give us the name of son that she wants to come in for training. Will hopefully have the patient at level using cane by the time of discharge. Restrictions/ Precautions: Falls, percutaneous abdominal drain WB status: FWB Functional Hx: ADLs: Independent Cognition: Independent Mobility: No AD Barriers to Discharge: Decreased mobility and ability to perform self care, balance deficits, weakness Estimated Length of Stay: 1014 days Discharge Destination: Home with family
[2020-11-13] MEDS: HEPARIN 5,000 UNIT/1 ML VIAL SUB-Q SCH ×2 (11:38→22:00)
[2020-11-14] MEDS: metroNIDAZOLE 500 MG TAB PO SCH ×2 (06:00→15:30)
[2020-11-14] MEDS: LOSARTAN 50 MG TAB PO SCH (08:28)
[2020-11-14] MEDS: PANTOPRAZOLE 40 MG TAB PO SCH (08:28)
[2020-11-14] MEDS: amLODIPine 10 MG TAB PO SCH (08:28)
[2020-11-14] MEDS: HEPARIN 5,000 UNIT/1 ML VIAL SUB-Q SCH ×2 (09:28→22:00)
[2020-11-15] MEDS: PANTOPRAZOLE 40 MG TAB PO SCH (07:52)
[2020-11-15] MEDS: amLODIPine 10 MG TAB PO SCH (07:53)
[2020-11-15] MEDS: LOSARTAN 50 MG TAB PO SCH (07:53)
[2020-11-15] MEDS: HEPARIN 5,000 UNIT/1 ML VIAL SUB-Q SCH ×2 (09:00→22:11)
[2020-11-16] MEDS: HEPARIN 5,000 UNIT/1 ML VIAL SUB-Q SCH ×3 (07:31→21:15)
[2020-11-16] MEDS: LOSARTAN 50 MG TAB PO SCH (07:32)
[2020-11-16] MEDS: amLODIPine 10 MG TAB PO SCH (07:32)
[2020-11-16] MEDS: PANTOPRAZOLE 40 MG TAB PO SCH (07:32)
--- NOTE | 2020-11-16 08:56 | Progress Note ---
Subjective Date of service: 11/16/20 Principal diagnosis: Debility Interval history: 80-year-old female who presented to the outside hospital on 10/19/2020 with complaints of generalized abdominal pain for the past 2 weeks accompanied with fever and chills for the past week. She is Polish speaking only. Patient was worked up and found to have a mass on her liver and was admitted for further treatment. Denied any decreased weight but did have decreased appetite over the same. Along with increased urinary frequency without dysuria. Initial work-up showed elevated WBC at 21.4, patient was afebrile and tachycardic. CT abdomen pelvis showed extensive colonic diverticulosis, hiatal hernia, hepatic mass on the right lobe, mottled hepatic hypodensity in both lobes and further advanced imaging was recommended. Antibiotics were started for sepsis. She developed a fever on 10/22 of 101.6 and infectious disease was consulted. Blood cultures were negative, she was found to have a UTI and also developed pneumonia during her stay, both of which were treated with antibiotics. A biopsy was taken of her liver and a percutaneous abdominal drain was placed by interventional radiology on 10/29 . Interventional radiology requested a follow-up with CT within 1 week of discharge for possibly removing the drain. We will try to coordinate with them to see if we can perform the imaging here versus sending her out. After the patient was medically stabilized they were transferred for further rehabilitation. All available medical records have been reviewed. Plan of care was discussed with patient. Language line was offered and available with the patient during examination, patient declined and stated we could speak in Khmer. I reminded her to please let me know she did not under stand anything and we would utilize the language line to ensure she had full understanding for her care. Patient continues on oral antibiotics. Patient also noted to have acute on chronic kidney disease (CKD 3) per the medical record however she denies this. She does live alone with her who is recently had a stroke and is primary caregiver. On examination her left upper extremity is warm, red and tender to palpation near her previous IV site, concern for either infiltration versus DVT versus thrombophlebitis. Doppler ordered to evaluate further Interval History: Patient is participating in therapy and making reasonable progress. Taking rest breaks as needed. +BM. Denies palpitations, dyspnea, cough, N/V, or joint pain. Left lower extremity pain improved with NSAIDs, modalities in therapy. Poor sleep overnight due to lights being left on. Debility: Continue therapy and monitor patient for improvement in ability to move around, maintain independence and decrease caregiver burden. Hepatic abscess: Antibiotics completed. Drain was removed on 11/[address] which showed no further fluid collection to be drained. Abdominal wound for catheter drain was secured with Steri-Strips. Outer bandage taken down today with no drainage noted, will be left open to air, no signs of infection Left upper extremity pain and swelling: Imaging and report reviewed. No signs of DVT in the left upper extremity. Swelling continues to decrease, continue utilizing modalities and pain medications as needed. Improving Hypertension: Values have been stable and within normal limits so far. Continue to monitor blood pressure on a regular basis and adjust for normotension. Goal less than 140/90. Avoid hypotension. Patient does occasionally have elevated systolic values in the 150s Anemia: Consistent with anemia of chronic disease. Folate in normal range but on the lower side. Moderate protein malnutrition: Albumin was low on admission, prealbumin also low at 0.168. Patient on supplements. CKD: Patient's renal function has been stable and within normal limits since admission. Estimated GFR greater than 60. Recheck labs tomorrow GERD: Continue medications adjust as needed, monitor for symptoms. Insomnia: Start trazodone and monitor, patient sleeping better. Poor sleep overnight due to lights being left on All records, vitals, labs and medications were reviewed. No other issues per patient, nursing or therapy. Objective - Exam Narrative Exam: MUSCULOSKELETAL SPECIALTY EXAM CONSTITUTIONAL: Well developed, well nourished, appropriately groomed, slightly obese EENT: Hearing intact to soft voice RESPIRATORY: Clear to auscultation bilaterally, no increased work of breathing CARDIOVASCULAR: Regular Rate/ Rhythm, no swelling, edema or tenderness in BUE or BLE. All extremities warm. GI: + bowel sounds, soft, NTTP, nondistended. Drain site CDI with Steri-Strips. INTEGUMENTARY: Normal, no lesion, rash, masses or bruising noted in extremities. MUSCULOSKELETAL: Left upper extremity with decreased range of motion and tenderness to palpation, otherwise BUE and BLE normal without defect, crepitus, subluxation, effusion, arthritic changes or TTP. RUE 4+/5, good ROM, with normal tone. LUE with decreased range of motion and strength due to pain BLE 4/5 good ROM, with normal tone NEURO: CN 2-12 grossly intact. Sensation intact in all extremities. No tremor noted in 4 extremities. POSTURE and GAIT: Sitting posture good. PSYCH: Alert, oriented x3, affect appears normal. Insight appears intact. - Constitutional Vitals: Vital Signs - 12hr 11/16/20 11/16/20 11/16/20 05:10 07:05 07:32 Temperature 98.7 F 98.2 F Pulse Rate 87 97 H 96 H Respiratory 16 18 Rate Blood Pressure 136/76 136/76 Blood Pressure 118/72 [Left] O2 Sat by Pulse 99 93 Oximetry - Allied health notes Allied health notes reviewed: nursing, PT, OT FIMS assessment as documented by PT/OT/ST: Grooming Patient cleans teeth/dentures: Yes Patient omer/brushes hair: Yes Patient washes, rinses and Yes dries face: Patient washes, rinses and Yes dries hands: Patient applies make-up: No Patient performs (no make-up/ /4 (100%) shaving): Grooming FIM Score 5. Supervision ([place] applies toothpaste or opens containers.) Toileting Toileting Device Urinal Toileting FIM Score 2. Maximal Assistance (Patient = 25% or more) Social interaction/Memory/Problem solving Social Interaction FIM Score 6. Mod. [place] (Mostly appropriate. May need meds. No supv.) Memory FIM Score 6. Modified [place](Mild difficulty remembering people/routines.) Transfers Mode of Locomotion: Wheelchair Bed/Chair/Wheelchair Transfers 4. Minimal Assistance (Patient = 75% or more. FIM Score Needs touching.) Patient transferred to: Shower Shower Transfers FIM Score 4. Minimal Assistance (Patient = 75% or more. Needs touching.) Locomotion- walk/wheelchair Ambulation Distance 126 Eating Eating FIM Score 6. Modified [place] (Special consistency or uses device.) Dressing-Upper body Patient retrieves clothing No items: Patient applies/removes UE No: n/a prosthesis or orthosis: Upper Body Dressing FIM Score 4. Minimal Assistance (Patient = 75% or more. Needs touching.) Dressing-lower body Patient retrieves clothing No items: Patient applies/removes LE No: n/a prosthesis or orthosis: Lower Body Dressing FIM Score 4. Minimal Assistance (Patient = 75% or more. Needs touching.) - Labs CBC & Chem 7: 06/11/21 06:42 11/09/20 06:21 Assessment and Plan Debility secondary to hospitalization with sepsis and liver abscess: Continue to monitor patient for resolution of infection. Antibiotics continued until completed course. Infectious disease available if needed. Percutaneous abdominal drain removed 11/11. Pain, swelling and redness of left upper extremity: Located at prior IV site which patient states was left in for a prolonged period of time. Concern for possible infiltration versus thrombophlebitis versus DVT. Doppler negative for thrombophlebitis or DVT. Currently providing ice for therapeutic relief along with pain medications/NSAIDs. Improving Hypertension: Goal less than 140/90. Avoid hypotension. Continue medications and monitor blood pressure on a regular basis and adjust medications as needed for normotension. She is currently on maximal dose of amlodipine, but we do have room to increase losartan. Anemia: Normocytic normochromic currently. We will continue to monitor and transfuse for hemoglobin less than 7. Moderate protein malnutrition: Start supplements, dietitian consult. Monitor oral intake and just supplements as needed. CKD?: Patient had acute on chronic kidney disease at outside hospital. Patient states that she does not have any diagnosis that she knows of of CKD. We will continue to monitor renal function and adjust medications as needed if we see further issues. Currently patient's renal function appears to be normal. GERD: Continue Protonix. Insomnia: Start trazodone monitor for improvement. ADL dysfunction: OT will work on improving ability to perform ADLs (including assistive devices) to increase independence and decrease caregiver burden and improve functional transfers and mobility training. Difficulty walking: PT will work on gait training and proper use of assistive devices and advance as appropriate to use of stairs and outside ambulation on uneven surfaces. Unsteadiness on feet: PT will work on improving static and dynamic sitting and standing balance as well as proper use of assistive devices to decrease risk of falls. Abnormality of gait: PT will work to improve safety and efficiency of gait through neuromotor training and gait training along with instruction on proper use of assistive devices. Muscle weakness: PT & OT will work on strengthening exercises to improve functional strength including mixture of closed and open kinetic chain exerci ses. Debility: PT & OT will work on improving overall functional status to improve participation with ADLs, mobility and social involvement. Fatigue: PT & OT will work on improving endurance through aerobic exercises and therapeutic activity while monitoring patients tolerance for activity and vital signs as needed. DVT ppx: Heparin twice daily Pain: Continue physical modalities in therapy and pain medications as needed to achieve functional pain control. Sleep: Monitor and address as needed. Bowel: Monitor and address as needed. Appetite: Monitor and address as needed. Discharge planning: Pending therapy progress and care plan meeting. Will continue discussion with therapy team, SW, patient and family. We will look to discharge this Monday. Will hopefully have the patient at level using cane by the time of discharge. Restrictions/ Precautions: Falls WB status: FWB Functional Hx: ADLs: Independent Cognition: Independent Mobility: No AD Barriers to Discharge: Decreased mobility and ability to perform self care, balance deficits, weakness Estimated Length of Stay: 1014 days Discharge Destination: Home with family
[2020-11-16] MEDS: traZODone 50 MG TAB PO PRN (21:15)
[2020-11-17 07:11] LABS: Hematocrit 29.3 % (30.3-42.9); Hemoglobin 10.1 gm/dl (10.1-14.3); Mean Corpuscular HGB Conc 34 % (30-34); Mean Corpuscular Volume 90 fl (79-97); Platelet Count 239 K/mm3 (140-440); Red Blood Count 3.26 M/mm3 (3.65-5.03); Red Cell Distribution Width 16.3 % (13.2-15.2)
[2020-11-17 07:32] LABS: BUN/Creatinine Ratio 20; Blood Urea Nitrogen 16 mg/dL (7-17); Calcium 9.6 mg/dL (8.4-10.2); Hemolysis Index 9
[2020-11-17] MEDS: amLODIPine 10 MG TAB PO SCH (09:46)
[2020-11-17] MEDS: PANTOPRAZOLE 40 MG TAB PO SCH (09:46)
[2020-11-17] MEDS: LOSARTAN 50 MG TAB PO SCH (09:46)
[2020-11-17] MEDS: HEPARIN 5,000 UNIT/1 ML VIAL SUB-Q SCH ×2 (09:47→21:07)
--- NOTE | 2020-11-17 10:16 | Progress Note ---
Subjective Date of service: 11/17/20 Principal diagnosis: Debility Interval history: 80-year-old female who presented to the outside hospital on 10/19/2020 with complaints of generalized abdominal pain for the past 2 weeks accompanied with fever and chills for the past week. She is Urdu speaking only. Patient was worked up and found to have a mass on her liver and was admitted for further treatment. Denied any decreased weight but did have decreased appetite over the same. Along with increased urinary frequency without dysuria. Initial work-up showed elevated WBC at 21.4, patient was afebrile and tachycardic. CT abdomen pelvis showed extensive colonic diverticulosis, hiatal hernia, hepatic mass on the right lobe, mottled hepatic hypodensity in both lobes and further advanced imaging was recommended. Antibiotics were started for sepsis. She developed a fever on 10/22 of 101.6 and infectious disease was consulted. Blood cultures were negative, she was found to have a UTI and also developed pneumonia during her stay, both of which were treated with antibiotics. A biopsy was taken of her liver and a percutaneous abdominal drain was placed by interventional radiology on 10/29 . Interventional radiology requested a follow-up with CT within 1 week of discharge for possibly removing the drain. We will try to coordinate with them to see if we can perform the imaging here versus sending her out. After the patient was medically stabilized they were transferred for further rehabilitation. All available medical records have been reviewed. Plan of care was discussed with patient. Language line was offered and available with the patient during examination, patient declined and stated we could speak in Telugu. I reminded her to please let me know she did not under stand anything and we would utilize the language line to ensure she had full understanding for her care. Patient continues on oral antibiotics. Patient also noted to have acute on chronic kidney disease (CKD 3) per the medical record however she denies this. She does live alone with her who is recently had a stroke and is primary caregiver. On examination her left upper extremity is warm, red and tender to palpation near her previous IV site, concern for either infiltration versus DVT versus thrombophlebitis. Doppler ordered to evaluate further Interval History: Patient is participating in therapy and making reasonable progress. Taking rest breaks as needed. +BM. Denies palpitations, dyspnea, cough, N/V, or joint pain. Left upper extremity pain much improved. Labs reviewed Debility: Continue therapy and monitor patient for improvement in ability to move around, maintain independence and decrease caregiver burden. Hepatic abscess: Antibiotics completed. Drain was removed on 11/[address] which showed no further fluid collection to be drained. Abdominal wound for catheter drain was secured with Steri-Strips. Outer bandage taken down today with no drainage noted, will be left open to air, no signs of infection Left upper extremity pain and swelling: Imaging and report reviewed. No signs of DVT in the left upper extremity. Swelling continues to decrease, continue utilizing modalities and pain medications as needed. Improving Hypertension: Values have been stable and within normal limits so far. Continue to monitor blood pressure on a regular basis and adjust for normotension. Goal less than 140/90. Avoid hypotension. Patient does occasionally have elevated systolic values in the 150s Anemia: Consistent with anemia of chronic disease. Hemoglobin normalized on today's labs. Folate in normal range but on the lower side. Moderate protein malnutrition: Albumin was low on admission, prealbumin also low at 0.168. Patient on supplements. CKD: Patient's renal function has been stable and within normal limits since admission. Estimated GFR greater than 60. GERD: Continue medications adjust as needed, monitor for symptoms. Insomnia: Start trazodone and monitor, patient sleeping better. Poor sleep overnight due to lights being left on All records, vitals, labs and medications were reviewed. No other issues per pa tiejudit, nursing or therapy. Patient discussed during team conference. Walking with a cane currently and would likely need a cane going home. Patient does have several canes at the house. We have set up home health therapy for her. Plan to discharge on Monday with family training same day. Objective - Exam Narrative Exam: MUSCULOSKELETAL SPECIALTY EXAM CONSTITUTIONAL: Well developed, well nourished, appropriately groomed, slightly obese EENT: Hearing intact to soft voice RESPIRATORY: Clear to auscultation bilaterally, no increased work of breathing CARDIOVASCULAR: Regular Rate/ Rhythm, no swelling, edema or tenderness in BUE or BLE. All extremities warm. GI: + bowel sounds, soft, NTTP, nondistended. Drain site CDI with Steri-Strips. INTEGUMENTARY: Normal, no lesion, rash, masses or bruising noted in extremities. MUSCULOSKELETAL: Left upper extremity with decreased range of motion and tenderness to palpation, otherwise BUE and BLE normal without defect, crepitus, subluxation, effusion, arthritic changes or TTP. BUE 4+/5, good ROM, with normal tone. BLE 4+/5 good ROM, with normal tone NEURO: CN 2-12 grossly intact. Sensation intact in all extremities. No tremor noted in 4 extremities. POSTURE and GAIT: Sitting posture good. PSYCH: Alert, oriented x3, affect appears normal. Insight appears intact. - Constitutional Vitals: Vital Signs - 12hr 11/17/20 11/17/20 11/17/20 04:46 07:23 09:46 Temperature 98.2 F 98.4 F Pulse Rate 97 H 90 90 Respiratory 16 16 Rate Blood Pressure 144/76 144/76 Blood Pressure 136/73 [Left] O2 Sat by Pulse 94 95 Oximetry - Allied health notes Allied health notes reviewed: nursing, PT, OT FIMS assessment as documented by PT/OT/ST: Grooming Patient cleans teeth/dentures: Yes Patient omer/brushes hair: Yes Patient washes, rinses and Yes dries face: Patient washes, rinses and Yes dries hands: Patient applies make-up: No Patient performs (no make-up/ 4/4 (100%) shaving): Grooming FIM Score 6. Modified [place] (Needs equipment/device . Extra time.) Toileting Toileting Device Commode over Toilet Patient able to: Adjust clothes before,Clean self,Adjust clothes after Patient able to perform: 3/3 (100%) Toileting FIM Score 5. Supv./Set-Up (Needs stand-by, set-up, applying prosth/orth.) Social interaction/Memory/Problem solving Social Interaction FIM Score 7. Complete [place] (Interacts appropriately. Controls temper.) Memory FIM Score 7. Complete [place] (Remembers people and routines.) Transfers Mode of Locomotion: Wheelchair Bed/Chair/Wheelchair Transfers 5. Supervision (Needs supv. or set-up for FIM Score sliding board, foot rests.) Toilet Transfers FIM Score 5. Supervision (Needs supervision or cueing.) Patient transferred to: Shower Shower Transfers FIM Score 4. Minimal Assistance (Patient = 75% or more. Needs touching.) Locomotion- walk/wheelchair Ambulation Distance 126 Eating Eating FIM Score 7. Complete [place] (Cuts meat, opens containers, regular diet.) Dressing-Upper body Patient retrieves clothing Yes items: Patient applies/removes UE No: n/a prosthesis or orthosis: Upper Body Dressing FIM Score 5. Supv./Set-Up ([place] sets out clothes or applies pros./orth.) Dressing-lower body Patient retrieves clothing Yes items: Patient applies/removes LE No: n/a prosthesis or orthosis: Lower Body Dressing FIM Score 5. Supv./Set-Up ([place] sets out clothes or applies pros./orth.) - Labs CBC & Chem 7: 11/17/20 06:58 11/17/20 06:58 Labs: Laboratory Results - last 72 hr 11/17/20 11/17/20 06:58 06:58 WBC 4.1 L RBC 3.26 L Hgb 10.1 Hct 29.3 L MCV 90 MCH 31 MCHC 34 RDW 16.3 H Plt Count 239 Sodium 139 Potassium 3.8 Chloride 100.0 Carbon Dioxide 29 Anion Gap 14 BUN 16 Creatinine 0.8 Estimated GFR > 60 BUN/Creatinine Ratio 20 Glucose 95 Calcium 9.6 Assessment and Plan Debility secondary to hospitalization with sepsis and liver abscess: Continue to monitor patient for resolution of infection. Antibiotics continued until completed course. Infectious disease available if needed. Percutaneous abdominal drain removed 11/11. Pain, swelling and redness of left upper extremity: Located at prior IV site which patient states was left in for a prolonged period of time. Concern for possible infiltration versus thrombophlebitis versus DVT. Doppler negative for thrombophlebitis or DVT. Currently providing ice for therapeutic relief along with pain medications/NSAIDs. Improving Hypertension: Goal less than 140/90. Avoid hypotension. Continue medications and monitor blood pressure on a regular basis and adjust medications as needed for normotension. She is currently on maximal dose of amlodipine, but we do have room to increase losartan. Anemia: Normocytic normochromic currently. We will continue to monitor and transfuse for hemoglobin less than 7. Moderate protein malnutrition: Start supplements, dietitian consult. Monitor oral intake and just supplements as needed. CKD?: Patient had acute on chronic kidney disease at outside hospital. Patient states that she does not have any diagnosis that she knows of of CKD. We will continue to monitor renal function and adjust medications as needed if we see further issues. Currently patient's renal function appears to be normal. GERD: Continue Protonix. Insomnia: Start trazodone monitor for improvement. ADL dysfunction: OT will work on improving ability to perform ADLs (including assistive devices) to increase independence and decrease caregiver burden and improve functional transfers and mobility training. Difficulty walking: PT will work on gait training and proper use of assistive devices and advance as appropriate to use of stairs and outside ambulation on uneven surfaces. Unsteadiness on feet: PT will work on improving static and dynamic sitting and standing balance as well as proper use of assistive devices to decrease risk of falls. Abnormality of gait: PT will work to improve safety and efficiency of gait through neuromotor training and gait training along with instruction on proper use of assistive devices. Muscle weakness: PT & OT will work on strengthening exercises to improve functional strength including mixture of closed and open kinetic chain exercises. Debility: PT & OT will work on improving overall functional status to improve participation with ADLs, mobility and social involvement. Fatigue: PT & OT will work on improving endurance through aerobic exercises and therapeutic activity while monitoring patients tolerance for activity and vital signs as needed. DVT ppx: Heparin twice daily Pain: Continue physical modalities in therapy and pain medications as needed to achieve functional pain control. Sleep: Monitor and address as needed. Bowel: Monitor and address as needed. Appetite: Monitor and address as needed. Discharge planning: Pending therapy progress and care plan meeting. Will continue discussion with therapy team, SW, patient and family. We will look to discharge this Monday. Patient currently using a cane and may progress to walking without assistive device prior to discharge. Restrictions/ Precautions: Falls WB status: FWB Functional Hx: ADLs: Independent Cognition: Independent Mobility: No AD Barriers to Discharge: Decreased mobility and ability to perform self care, balance deficits, weakness Estimated Length of Stay: 1014 days Discharge Destination: Home with family
[2020-11-17] MEDS: traZODone 50 MG TAB PO PRN (21:07)
[2020-11-17] MEDS: traMADol 50 MG TAB PO PRN (21:24)
[2020-11-18] MEDS: LOSARTAN 50 MG TAB PO SCH (07:54)
[2020-11-18] MEDS: amLODIPine 10 MG TAB PO SCH (07:54)
[2020-11-18] MEDS: PANTOPRAZOLE 40 MG TAB PO SCH (07:55)
[2020-11-18] MEDS: HEPARIN 5,000 UNIT/1 ML VIAL SUB-Q SCH ×3 (07:55→22:04)
--- NOTE | 2020-11-18 08:20 | Progress Note ---
Subjective Date of service: 11/18/20 Principal diagnosis: Debility Interval history: 80-year-old female who presented to the outside hospital on 10/19/2020 with complaints of generalized abdominal pain for the past 2 weeks accompanied with fever and chills for the past week. She is Lithuanian speaking only. Patient was worked up and found to have a mass on her liver and was admitted for further treatment. Denied any decreased weight but did have decreased appetite over the same. Along with increased urinary frequency without dysuria. Initial work-up showed elevated WBC at 21.4, patient was afebrile and tachycardic. CT abdomen pelvis showed extensive colonic diverticulosis, hiatal hernia, hepatic mass on the right lobe, mottled hepatic hypodensity in both lobes and further advanced imaging was recommended. Antibiotics were started for sepsis. She developed a fever on 10/22 of 101.6 and infectious disease was consulted. Blood cultures were negative, she was found to have a UTI and also developed pneumonia during her stay, both of which were treated with antibiotics. A biopsy was taken of her liver and a percutaneous abdominal drain was placed by interventional radiology on 10/29 . Interventional radiology requested a follow-up with CT within 1 week of discharge for possibly removing the drain. We will try to coordinate with them to see if we can perform the imaging here versus sending her out. After the patient was medically stabilized they were transferred for further rehabilitation. All available medical records have been reviewed. Plan of care was discussed with patient. Language line was offered and available with the patient during examination, patient declined and stated we could speak in Portuguese. I reminded her to please let me know she did not under stand anything and we would utilize the language line to ensure she had full understanding for her care. Patient continues on oral antibiotics. Patient also noted to have acute on chronic kidney disease (CKD 3) per the medical record however she denies this. She does live alone with her who is recently had a stroke and is primary caregiver. On examination her left upper extremity is warm, red and tender to palpation near her previous IV site, concern for either infiltration versus DVT versus thrombophlebitis. Doppler ordered to evaluate further Interval History: Patient is participating in therapy and making reasonable progress. Taking rest breaks as needed. +BM. Denies palpitations, dyspnea, cough, N/V, or joint pain. Left upper extremity pain much improved. Look to discharge on Monday. We would typically discharge patient home when they reach this level, however this patient is the primary caregiver for her who has suffered a stroke and needs significant assistance. She and the live alone and she needs to be as independent as possible when returning home in order to both care for him and herself as she will not have assistance available. They do have children that come over and assist at times but she is the primary/majority caregiver for him. Due to this, we have continue to work with her past the point of being min assist in order to better facilitate her return to her prior functioning level. Debility: Continue therapy and monitor patient for improvement in ability to move around, maintain independence and decrease caregiver burden. Hepatic abscess: Antibiotics completed. Drain was removed on 11/[address] which showed no further fluid collection to be drained. Abdominal wound for catheter drain was secured with Steri-Strips. Outer bandage taken down today with no drainage noted, will be left open to air, no signs of infection Left upper extremity pain and swelling: Imaging and report reviewed. No signs of DVT in the left upper extremity. Swelling continues to decrease, continue utilizing modalities and pain medications as needed. Improving Hypertension: Values have been stable and within normal limits so far. Continue to monitor blood pressure on a regular basis and adjust for normotension. Goal less than 140/90. Avoid hypotension. Patient does occasionally have elevated systolic values in the 150s, has been in range last 3 days Anemia: Consistent with anemia of chronic disease. Hemoglobin normalized at 10.1 on 11/17. Folate in normal range but on the lower side. Moderate protein malnutrition: Albumin was low on admission, prealbumin also low at 0.168. Patient on supplements. CKD: Patient's renal function has been stable and within normal limits since admission. Estimated GFR greater than 60. GERD: Continue medications adjust as needed, monitor for symptoms. Insomnia: Start trazodone and monitor, patient sleeping better. Poor sleep overnight due to lights being left on All records, vitals, labs and medications were reviewed. No other issues per patient, nursing or therapy. Objective - Exam Narrative Exam: MUSCULOSKELETAL SPECIALTY EXAM CONSTITUTIONAL: Well developed, well nourished, appropriately groomed, slightly obese EENT: Hearing intact to soft voice RESPIRATORY: Clear to auscultation bilaterally, no increased work of breathing CARDIOVASCULAR: Regular Rate/ Rhythm, no swelling, edema or tenderness in BUE or BLE. All extremities warm. GI: soft, NTTP, nondistended. Drain site CDI with Steri-Strips. INTEGUMENTARY: Normal, no lesion, rash, masses or bruising noted in extremities. MUSCULOSKELETAL: Left upper extremity with decreased range of motion and tenderness to palpation, otherwise BUE and BLE normal without defect, crepitus, subluxation, effusion, arthritic changes or TTP. BUE 4+/5, good ROM, with normal tone. BLE 4+/5 good ROM, with normal tone NEURO: CN 2-12 grossly intact. Sensation intact in all extremities. No tremor noted in 4 extremities. POSTURE and GAIT: Sitting posture good. PSYCH: Alert, oriented x3, affect appears normal. Insight appears intact. - Constitutional Vitals: Vital Signs - 12hr 11/18/20 11/18/20 07:30 07:54 Temperature 98.1 F Pulse Rate 81 81 Respiratory 16 Rate Blood Pressure 122/60 122/60 O2 Sat by Pulse 94 Oximetry - Allied health notes Allied health notes reviewed: nursing, PT, OT FIMS assessment as documented by PT/OT/ST: Grooming Patient cleans teeth/dentures: Yes Patient omer/brushes hair: Yes Patient washes, rinses and Yes dries face: Patient washes, rinses and Yes dries hands: Patient applies make-up: No Patient performs (no make-up/ / (100%) shaving): Grooming FIM Score 6. Modified [place] (Needs equipment/device . Extra time.) Toileting Toileting Device Commode over Toilet Patient able to: Adjust clothes before,Clean self,Adjust clothes after Patient able to perform: 3/3 (100%) Toileting FIM Score 6. Modified [place] (Needs equip. or prosth ./orth.) Social interaction/Memory/Problem solving Social Interaction FIM Score 6. Mod. [place] (Mostly appropriate. May need meds. No supv.) Memory FIM Score 7. Complete [place] (Remembers people and routines.) Transfers Mode of Locomotion: Wheelchair Bed/Chair/Wheelchair Transfers 6. Modified [place] (Uses device, sliding FIM Score board, prosth./orth.) Toilet Transfers FIM Score 6. Modified [place] (Uses device, special seat or more time.) Patient transferred to: Shower Shower Transfers FIM Score 4. Minimal Assistance (Patient = 75% or more. Needs touching.) Locomotion- walk/wheelchair Ambulation Distance 126 Eating Eating FIM Score 6. Modified [place] (Special consistency or uses device.) Dressing-Upper body Patient retrieves clothing Yes items: Patient applies/removes UE No: n/a prosthesis or orthosis: Upper Body Dressing FIM Score 7. Complete [place] (Dresses self. Gets own clothes.) Dressing-lower body Patient retrieves clothing Yes items: Patient applies/removes LE No: n/a prosthesis or orthosis: Lower Body Dressing FIM Score 6. Modified [place] (Needs equipment, velcro or pros./orth.) - Labs CBC & Chem 7: 11/17/20 06:58 11/17/20 06:58 Labs: Laboratory Results - last 72 hr 11/17/20 11/17/20 06:58 06:58 WBC 4.1 L RBC 3.26 L Hgb 10.1 Hct 29.3 L MCV 90 MCH 31 MCHC 34 RDW 16.3 H Plt Count 239 Sodium 139 Potassium 3.8 Chloride 100.0 Carbon Dioxide 29 Anion Gap 14 BUN 16 Creatinine 0.8 Estimated GFR > 60 BUN/Creatinine Ratio 20 Glucose 95 Calcium 9.6 Assessment and Plan Debility secondary to hospitalization with sepsis and liver abscess: Continue to monitor patient for resolution of infection. Antibiotics continued until completed course. Infectious disease available if needed. Percutaneous abdomi nal drain removed 11/11. Pain, swelling and redness of left upper extremity: Located at prior IV site which patient states was left in for a prolonged period of time. Concern for possible infiltration versus thrombophlebitis versus DVT. Doppler negative for thrombophlebitis or DVT. Currently providing ice for therapeutic relief along with pain medications/NSAIDs. Improving and stronger Hypertension: Goal less than 140/90. Avoid hypotension. Continue medications and monitor blood pressure on a regular basis and adjust medications as needed for normotension. She is currently on maximal dose of amlodipine, but we do have room to increase losartan. Anemia: Normocytic normochromic currently. We will continue to monitor and transfuse for hemoglobin less than 7. Moderate protein malnutrition: Start supplements, dietitian consult. Monitor oral intake and just supplements as needed. CKD?: Patient had acute on chronic kidney disease at outside hospital. Patient states that she does not have any diagnosis that she knows of of CKD. We will continue to monitor renal function and adjust medications as needed if we see further issues. Currently patient's renal function appears to be normal. GERD: Continue Protonix. Insomnia: Start trazodone monitor for improvement. ADL dysfunction: OT will work on improving ability to perform ADLs (including assistive devices) to increase independence and decrease caregiver burden and improve functional transfers and mobility training. Difficulty walking: PT will work on gait training and proper use of assistive devices and advance as appropriate to use of stairs and outside ambulation on uneven surfaces. Unsteadiness on feet: PT will work on improving static and dynamic sitting and standing balance as well as proper use of assistive devices to decrease risk of falls. Abnormality of gait: PT will work to improve safety and efficiency of gait through neuromotor training and gait training along with instruction on proper use of assistive devices. Muscle weakness: PT & OT will work on strengthening exercises to improve fun ctional strength including mixture of closed and open kinetic chain exercises. Debility: PT & OT will work on improving overall functional status to improve participation with ADLs, mobility and social involvement. Fatigue: PT & OT will work on improving endurance through aerobic exercises and therapeutic activity while monitoring patients tolerance for activity and vital signs as needed. DVT ppx: Heparin twice daily Pain: Continue physical modalities in therapy and pain medications as needed to achieve functional pain control. Sleep: Monitor and address as needed. Bowel: Monitor and address as needed. Appetite: Monitor and address as needed. Discharge planning: Pending therapy progress and care plan meeting. Will continue discussion with therapy team, SW, patient and family. We will look to discharge this Monday. Patient currently using a cane and may progress to walking without assistive device prior to discharge. Restrictions/ Precautions: Falls WB status: FWB Functional Hx: ADLs: Independent Cognition: Independent Mobility: No AD Barriers to Discharge: Decreased mobility and ability to perform self care, balance deficits, weakness Estimated Length of Stay: 1014 days Discharge Destination: Home with family
[2020-11-18] MEDS: traZODone 50 MG TAB PO PRN (22:04)
[2020-11-18] MEDS: traMADol 50 MG TAB PO PRN (22:04)
--- NOTE | 2020-11-19 08:01 | Progress Note ---
Subjective Date of service: 11/19/20 Principal diagnosis: Debility Interval history: 80-year-old female who presented to the outside hospital on 10/19/2020 with complaints of generalized abdominal pain for the past 2 weeks accompanied with fever and chills for the past week. She is Slovak speaking only. Patient was worked up and found to have a mass on her liver and was admitted for further treatment. Denied any decreased weight but did have decreased appetite over the same. Along with increased urinary frequency without dysuria. Initial work-up showed elevated WBC at 21.4, patient was afebrile and tachycardic. CT abdomen pelvis showed extensive colonic diverticulosis, hiatal hernia, hepatic mass on the right lobe, mottled hepatic hypodensity in both lobes and further advanced imaging was recommended. Antibiotics were started for sepsis. She developed a fever on 10/22 of 101.6 and infectious disease was consulted. Blood cultures were negative, she was found to have a UTI and also developed pneumonia during her stay, both of which were treated with antibiotics. A biopsy was taken of her liver and a percutaneous abdominal drain was placed by interventional radiology on 10/29 . Interventional radiology requested a follow-up with CT within 1 week of discharge for possibly removing the drain. We will try to coordinate with them to see if we can perform the imaging here versus sending her out. After the patient was medically stabilized they were transferred for further rehabilitation. All available medical records have been reviewed. Plan of care was discussed with patient. Language line was offered and available with the patient during examination, patient declined and stated we could speak in Maltese. I reminded her to please let me know she did not under stand anything and we would utilize the language line to ensure she had full understanding for her care. Patient continues on oral antibiotics. Patient also noted to have acute on chronic kidney disease (CKD 3) per the medical record however she denies this. She does live alone with her who is recently had a stroke and is primary caregiver. On examination her left upper extremity is warm, red and tender to palpation near her previous IV site, concern for either infiltration versus DVT versus thrombophlebitis. Doppler ordered to evaluate further Interval History: Patient is participating in therapy and making reasonable progress. Taking rest breaks as needed. +BM. Denies palpitations, dyspnea, cough, N/V, or joint pain. Left upper extremity pain much improved. Look to discharge on Monday. Patient states that she has right ankle pain today. Relates it to an old injury which required pins to repair. Typically she utilizes Tylenol or creams, will start Voltaren gel and monitor. Debility: Continue therapy and monitor patient for improvement in ability to move around, maintain independence and decrease caregiver burden. Hepatic abscess: Antibiotics completed. Drain was removed on 11/[address] which showed no further fluid collection to be drained. Abdominal wound for catheter drain was secured with Steri-Strips. Outer bandage taken down today with no drainage noted, will be left open to air, no signs of infection Left upper extremity pain and swelling: Imaging and report reviewed. No signs of DVT in the left upper extremity. Swelling continues to decrease, continue utilizing modalities and pain medications as needed. Improving Hypertension: Values have been stable and within normal limits so far. Continue to monitor blood pressure on a regular basis and adjust for normotension. Goal less than 140/90. Avoid hypotension. Patient does occasionally have elevated systolic values in the 150s, has been in range last 3 days Right ankle pain: Old injury exacerbated by increased activity. Voltaren gel and Tylenol for relief, monitor Anemia: Consistent with anemia of chronic disease. Hemoglobin normalized at 10.1 on 11/17. Folate in normal range but on the lower side. Moderate protein malnutrition: Albumin was low on admission, prealbumin also low at 0.168. Patient on supplements. CKD: Patient's renal function has been stable and within normal limits since admission. Estimated GFR greater than 60. GERD: Continue medications adjust as needed, monitor for symptoms. Insomnia: Start trazodone and monitor, patient sleeping better. Poor sleep overnight due to lights being left on All records, vitals, labs and medications were reviewed. No other issues per patient, nursing or therapy. Objective - Exam Narrative Exam: MUSCULOSKELETAL SPECIALTY EXAM CONSTITUTIONAL: Well developed, well nourished, appropriately groomed, slightly obese EENT: Hearing intact to soft voice RESPIRATORY: Clear to auscultation bilaterally, no increased work of breathing CARDIOVASCULAR: Regular Rate/ Rhythm, no swelling, edema or tenderness in BUE or BLE. All extremities warm. GI: soft, NTTP, nondistended. Drain site CDI with Steri-Strips. INTEGUMENTARY: Normal, no lesion, rash, masses or bruising noted in extremities. MUSCULOSKELETAL: Right ankle slightly decreased range of motion and TTP, otherwise BUE and BLE normal without defect, crepitus, subluxation, effusion, arthritic changes or TTP. BUE 4+/5, good ROM, with normal tone. BLE 4+/5 good ROM, with normal tone NEURO: CN 2-12 grossly intact. Sensation intact in all extremities. No tremor noted in 4 extremities. POSTURE and GAIT: Sitting posture good. PSYCH: Alert, oriented x3, affect appears normal. Insight appears intact. - Constitutional Vitals: Vital Signs - 12hr 11/19/20 11/19/20 04:00 07:24 Temperature 97.8 F 98.5 F Pulse Rate 93 H 92 H Respiratory 18 16 Rate Blood Pressure 142/68 122/62 [Left] O2 Sat by Pulse 94 96 Oximetry - Allied health notes Allied health notes reviewed: nursing, PT, OT FIMS assessment as documented by PT/OT/ST: Grooming Patient cleans teeth/dentures: Yes Patient omer/brushes hair: Yes Patient washes, rinses and Yes dries face: Patient washes, rinses and Yes dries hands: Patient applies make-up: No Patient performs (no make-up/ 4/ (100%) shaving): Grooming FIM Score 6. Modified [place] (Needs equipment/device . Extra time.) Toileting Toileting Device Commode over Toilet Patient able to: Adjust clothes before,Clean self,Adjust clothes after Patient able to perform: 3/3 (100%) Toileting FIM Score 6. Modified [place] (Needs equip. or prosth ./orth.) Social interaction/Memory/Problem solving Social Interaction FIM Score 7. Complete [place] (Interacts appropriately. Controls temper.) Memory FIM Score 7. Complete [place] (Remembers people and routines.) Transfers Mode of Locomotion: Wheelchair Bed/Chair/Wheelchair Transfers 6. Modified [place] (Uses device, sliding FIM Score board, prosth./orth.) Toilet Transfers FIM Score 6. Modified [place] (Uses device, special seat or more time.) Patient transferred to: Shower Shower Transfers FIM Score 4. Minimal Assistance (Patient = 75% or more. Needs touching.) Locomotion- walk/wheelchair Ambulation Distance 126 Eating Eating FIM Score 7. Complete [place] (Cuts meat, opens containers, regular diet.) Dressing-Upper body Patient retrieves clothing Yes items: Patient applies/removes UE No: n/a prosthesis or orthosis: Upper Body Dressing FIM Score 7. Complete [place] (Dresses self. Gets own clothes.) Dressing-lower body Patient retrieves clothing Yes items: Patient applies/removes LE No: n/a prosthesis or orthosis: Lower Body Dressing FIM Score 6. Modified [place] (Needs equipment, velcro or pros./orth.) - Labs CBC & Chem 7: 11/17/20 06:58 11/17/20 06:58 Labs: Laboratory Results - last 72 hr 11/17/20 11/17/20 06:58 06:58 WBC 4.1 L RBC 3.26 L Hgb 10.1 Hct 29.3 L MCV 90 MCH 31 MCHC 34 RDW 16.3 H Plt Count 239 Sodium 139 Potassium 3.8 Chloride 100.0 Carbon Dioxide 29 Anion Gap 14 BUN 16 Creatinine 0.8 Estimated GFR > 60 BUN/Creatinine Ratio 20 Glucose 95 Calcium 9.6 Assessment and Plan Debility secondary to hospitalization with sepsis and liver abscess: Continue to monitor patient for resolution of infection. Antibiotics continued until completed course. Infectious disease available if needed. Percutaneous abdominal drain removed 11/11. Pain, swelling and redness of left upper extremity: Located at prior IV site which patient states was left in for a prolonged period of time. Concern for possible infiltration versus thrombophlebitis versus DVT. Doppler negative for thrombophlebitis or DVT. Currently providing ice for therapeutic relief along with pain medications/NSAIDs. Improving and stronger Hypertension: Goal less than 140/90. Avoid hypotension. Continue medications and monitor blood pressure on a regular basis and adjust medications as needed for normotension. She is currently on maximal dose of amlodipine, but we do h ave room to increase losartan. Right ankle pain: Exacerbation of old injury. Modalities and trial Voltaren gel and Tylenol. Patient states she uses creams and Tylenol at home. Anemia: Normocytic normochromic currently. We will continue to monitor and transfuse for hemoglobin less than 7. Moderate protein malnutrition: Start supplements, dietitian consult. Monitor oral intake and just supplements as needed. CKD?: Patient had acute on chronic kidney disease at outside hospital. Patient states that she does not have any diagnosis that she knows of of CKD. We will continue to monitor renal function and adjust medications as needed if we see further issues. Currently patient's renal function appears to be normal. GERD: Continue Protonix. Insomnia: Start trazodone monitor for improvement. ADL dysfunction: OT will work on improving ability to perform ADLs (including assistive devices) to increase independence and decrease caregiver burden and improve functional transfers and mobility training. Difficulty walking: PT will work on gait training and proper use of assistive de vices and advance as appropriate to use of stairs and outside ambulation on uneven surfaces. Unsteadiness on feet: PT will work on improving static and dynamic sitting and standing balance as well as proper use of assistive devices to decrease risk of falls. Abnormality of gait: PT will work to improve safety and efficiency of gait through neuromotor training and gait training along with instruction on proper use of assistive devices. Muscle weakness: PT & OT will work on strengthening exercises to improve functional strength including mixture of closed and open kinetic chain exercises. Debility: PT & OT will work on improving overall functional status to improve participation with ADLs, mobility and social involvement. Fatigue: PT & OT will work on improving endurance through aerobic exercises and therapeutic activity while monitoring patients tolerance for activity and vital signs as needed. DVT ppx: Heparin twice daily Pain: Continue physical modalities in therapy and pain medications as needed to achieve functional pain control. Sleep: Monitor and address as needed. Bowel: Monitor and address as needed. Appetite: Monitor and address as needed. Discharge planning: Pending therapy progress and care plan meeting. Will continue discussion with therapy team, SW, patient and family. We will look to discharge this Monday. Patient currently using a cane and may progress to walking without assistive device prior to discharge. Restrictions/ Precautions: Falls WB status: FWB Functional Hx: ADLs: Independent Cognition: Independent Mobility: No AD Barriers to Discharge: Decreased mobility and ability to perform self care, balance deficits, weakness Estimated Length of Stay: 1014 days Discharge Destination: Home with family
[2020-11-19] MEDS: PANTOPRAZOLE 40 MG TAB PO SCH (08:13)
[2020-11-19] MEDS: amLODIPine 10 MG TAB PO SCH (08:13)
[2020-11-19] MEDS: HEPARIN 5,000 UNIT/1 ML VIAL SUB-Q SCH ×2 (08:13→09:01)
[2020-11-19] MEDS: LOSARTAN 50 MG TAB PO SCH (08:13)
[2020-11-19] MEDS: traMADol 50 MG TAB PO PRN ×2 (09:46→20:20)
[2020-11-19] MEDS ORDERED: DICLOFENAC SODIUM 1% TOPICAL GEL 100 GM TP PRN (11:00)
[2020-11-19] MEDS: traZODone 50 MG TAB PO PRN (20:20)
[2020-11-20] MEDS: PANTOPRAZOLE 40 MG TAB PO SCH (08:18)
[2020-11-20 08:19] VITALS: BP 141/67
[2020-11-20] MEDS: amLODIPine 10 MG TAB PO SCH (08:19)
[2020-11-20] MEDS: LOSARTAN 50 MG TAB PO SCH (08:19)
--- NOTE | 2020-11-20 08:59 | XRay Report ---
RIGHT ANKLE 3 VIEWS INDICATION: Pain/swelling, known old injury with hardware. COMPARISON: None. IMPRESSION: Borderline osteopenia. There is been previous internal fixation of a medial malleolus fr acture with a single orthopedic screw. Chronic healed fracture of the distal fibular shaft is also no myles. No acute fracture is detected. 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 Moderate degenerative changes in the posterior subtalar joint. The sof t tissues are mildly edematous. Signer Name: Bryan Khan Jr, MD Signed: 11/20/2020 8:55 AM Workstation Name: [id number]
[2020-11-20] MEDS: HEPARIN 5,000 UNIT/1 ML VIAL SUB-Q SCH (09:25)
--- NOTE | 2020-11-20 09:57 | Discharge Summary ---
Providers - Providers Date of Admission: 11/06/20 21:04 Date of discharge: 11/20/20 Attending physician: TOYNA FELIZ III, MD 11/06/20 16:12 Occupational Therapy Evaluate and Treat [CONS] Routine Comment: Reason For Exam: ADL dysfunction Physical Therapy Evaluation and Treat [CONS] Routine Comment: Reason For Exam: Mobility Dysfunction 11/07/20 10:31 Consult to Dietitian/Nutrition [CONS] Routine Physician Instructions: Reason For Exam: Reason for Consult: Malnutrition Primary care physician: NATALEE VANG Hospitalization Reason for admission: Debility with hepatic abscess Condition: Good Pertinent studies: Venous Doppler dated 11/07/20 showed no signs of DVT or superficial thrombophlebi tis, mild superficial soft tissue swelling was present Abdomen pelvis CT dated 11/11/20 showed complete resolution of hepatic abscess with no fluid collection seen, no acute process in the abdomen or pelvis, diffuse diverticulosis of the colon, small hiatal hernia. Right ankle x-ray dated 11/20/2020 showed borderline osteopenia, internal fixation of medial malleolus fracture with screw, chronic healed fracture of the distal fibular shaft. No acute fracture. Severe osteoarthritic/posttraumatic degenerative changes noted in the tibiotalar joint. Moderate degenerative changes in the posterior subtalar joint Hospital course: 80-year-old female who presented to the outside hospital on 10/19/2020 with complaints of generalized abdominal pain for the past 2 weeks accompanied with fever and chills for the past week. She is Lithuanian speaking only. Patient was worked up and found to have a mass on her liver and was admitted for further treatment. Denied any decreased weight but did have decreased appetite over the same. Along with increased urinary frequency without dysuria. Initial work-up showed elevated WBC at 21.4, patient was afebrile and tachycardic. CT abdomen pelvis showed extensive colonic diverticulosis, hiatal hernia, hepatic mass on the right lobe, mottled hepatic hypodensity in both lobes and further advanced imaging was recommended. Antibiotics were started for sepsis. She developed a fever on 10/22 of 101.6 and infectious disease was consulted. Blood cultures were negative, she was found to have a UTI and also developed pneumonia during her stay, both of which were treated with antibiotics. A biopsy was taken of her liver and a percutaneous abdominal drain was placed by interventional radiology on 10/29 . Interventional radiology requested a follow-up with CT within 1 week of discharge for possibly removing the drain. We will try to coordinate with them to see if we can perform the imaging here versus sending her out. After the patient was medically stabilized they were transferred for further rehabilitation. All available medical records have been reviewed. Plan of care was discussed with patient. Language line was offered and available with the patient during examination, patient declined and stated we could speak in Frisian. I reminded her to please let me know she did not under stand anything and we would utilize the language line to ensure she had full understanding for her care. Patient continues on oral antibiotics. Patient also noted to have acute on chronic kidney disease (CKD 3) per the medical record however she denies this. She does live alone with her who is recently had a stroke and is primary caregiver. On examination her left upper extremity is warm, red and tender to palpation near her previous IV site, concern for either infiltration versus DVT versus thrombophlebitis. Doppler ordered to evaluate further Interval History: Patient is participating in therapy and making reasonable progress. Taking rest breaks as needed. +BM. Denies palpitations, dyspnea, cough, N/V, or joint pain. Left upper extremity pain much improved. Look to discharge on Monday. Patient states that she has right ankle pain today. Relates it to an old injury which required a screw to repair. Typically she utilizes Tylenol or creams, will start Voltaren gel and monitor. Debility: Continue therapy and monitor patient for improvement in ability to move around, maintain independence and decrease caregiver burden. Hepatic abscess: Antibiotics completed. Drain was removed on 11/[address] which showed no further fluid collection to be drained. Abdominal wound for catheter drain was secured with Steri-Strips. Outer bandage taken down today with no drainage noted, will be left open to air, no signs of infection Left upper extremity pain and swelling: Imaging and report reviewed. No signs of DVT in the left upper extremity. Swelling continues to decrease, continue utilizing modalities and pain medications as needed. Improving Hypertension: Values have been stable and within normal limits so far. Continue to monitor blood pressure on a regular basis and adjust for normotension. Goal less than 140/90. Avoid hypotension. Right ankle pain: Old injury exacerbated by increased activity. Voltaren gel and Tylenol for relief, monitor. Nursing concerned this morning about worsening pain and swelling. X-ray obtained prior to discharge showed no acute injury but chronic arthritic changes and osteopenia accompanied by soft tissue swelling. Would recommend continuing Tylenol/Voltaren gel and follow-up with PCP or orthopedics after discharge. Patient is stating that she has a difficulty walking with a cane currently. Will have therapy work with her utilizing a rolling walker which she also has at home. This will help her to take weight off of the right ankle. Advised her to utilize ice, Tylenol, Voltaren gel and have relative rest and elevation for the limb. If the ankle pain worsens or does not get better, patient may benefit from a discussion with orthopedics for further options. Anemia: Consistent with anemia of chronic disease. Hemoglobin normalized at 10.1 on 11/17. Folate in normal range but on the lower side. Moderate protein malnutrition: Albumin was low on admission, prealbumin also low at 0.168. Patient on supplements. CKD: Patient's renal function has been stable and within normal limits since admission. Estimated GFR greater than 60. GERD: Continue medications adjust as needed, monitor for symptoms. Insomnia: Start trazodone and monitor, patient sleeping better. Disposition: DC/TX- HOME UNDER HOME [facility] Final Discharge Diagnosis (Prints w/discharge instructions): Debility, hepatic abscess, hypertension Time spent for discharge: >35 mins Core Measure Documentation - Palliative Care Palliative Care/ Comfort Measures: Not Applicable - Core Measures Any of the following diagnoses?: none Exam - Physical Exam Narrative exam: MUSCULOSKELETAL SPECIALTY EXAM CONSTITUTIONAL: Well developed, well nourished, appropriately groomed, slightly obese EENT: Hearing intact to soft voice RESPIRATORY: Clear to auscultation bilaterally, no increased work of breathing CARDIOVASCULAR: Regular Rate/ Rhythm, no swelling, edema or tenderness in BUE or BLE. All extremities warm. GI: soft, NTTP, nondistended. Drain site CDI with Steri-Strips. INTEGUMENTARY: Normal, no lesion, rash, masses or bruising noted in extremities. MUSCULOSKELETAL: Right ankle slightly decreased range of motion and TTP with mild swelling, otherwise BUE and BLE normal without defect, crepitus, subluxation, effusion, arthritic changes or TTP. BUE 4+/5, good ROM, with normal tone. BLE 4+/5 good ROM, with normal tone NEURO: CN 2-12 grossly intact. Sensation intact in all extremities. No tremor noted in 4 extremities. POSTURE and GAIT: Sitting posture good. PSYCH: Alert, oriented x3, affect appears normal. Insight appears intact. - Constitutional Vitals: Temp Pulse Resp BP Pulse Ox 98.5 F 105 H 16 141/67 92 11/20/20 07:59 11/20/20 08:19 11/20/20 07:59 11/20/20 08:19 11/20/20 07:59 Plan Activity: fall precautions Diet: other (Regular heart healthy diet) Special Instructions: physical therapy, occupational therapy, home health RN Durable Medical Equipment Needed Upon Discharge: other (Patient currently ambulating with a cane, may need a walker due to right ankle pain which is chronic. Has all other needed medical equipment at home) Care Plan Goals: Patient will need to follow-up with PCP at discharge. We will also need to follow-up with outside cell biology scientist for hepatic abscess. Follow up with: NATALEE VANG MD [Primary Care Provider] - 7 Days Prescriptions: traZODone [Desyrel] 50 mg PO QHS PRN #30 tablet PRN Reason: Insomnia AtorvaSTATin [Lipitor] 40 mg PO QHS #30 tablet amLODIPine 10 mg PO QDAY #30 tablet Losartan [Cozaar] 50 mg PO QDAY #30 tablet Pantoprazole [Protonix TAB] 40 mg PO QDAC #30 tablet traMADoL [Ultram 50 MG tab] 50 mg PO BID PRN #20 tablet PRN Reason: Pain, Moderate (4-6)
[2020-11-20] MEDS ORDERED: dexAMETHasone 4 MG/ML VIAL IV ONE (11:36)
== END 2020-11-20 15:45 | disposition home or self-care (01) | DRG 947 ==
LOC: 3A 14:22 → UNDOADMIN 14:22 → 3B 21:04
PROVIDERS: ADMIT Physical Medicine & Rehabilitation; ATTEND Physical Medicine & Rehabilitation
DX: R53.81 Other malaise (principal); A41.9 Sepsis, unspecified organism; K75.0 Abscess of liver; E44.0 Moderate protein-calorie malnutrition; I12.9 Hypertensive chronic kidney disease with stage 1 through stage 4 chronic kidney disease, or unspecified chronic kidney disease; N18.30 Chronic kidney disease, stage 3 unspecified; E78.5 Hyperlipidemia, unspecified; K21.9 Gastro-esophageal reflux disease without esophagitis; Z90.49 Acquired absence of other specified parts of digestive tract; Z82.49 Family history of ischemic heart disease and other diseases of the circulatory system; Z96.652 Presence of left artificial knee joint; D64.9 Anemia, unspecified; Z68.34 Body mass index [BMI] 34.0-34.9, adult; G47.00 Insomnia, unspecified
CPT/HCPCS: 36415; 74176; 80048; 80053; 82607; 82728; 82747; 83550; 84134; 84550; 85025; 85027; G0378; A9270-GY; J1100; J1644; Q0162